=== PATIENT | male | born 1970 | race Caucasian/White ===

== ENCOUNTER → 2017-03-13 | Outpatient (CLI) | payer MEDICARE, MEDICAID ==
--- NOTE | 2017-03-13 08:34 | REP ---
Clinical: Nephrolithiasis. Comparison: 02/22/2015. Findings: Lung bases are clear. Visualized heart and pericardium normal. Fatty infiltration to the liver noted. The patient is status post cholecystectomy. Spleen, pancreas, bilateral adrenal glands and left kidney are normal. Right kidney includes 2 mm nonobstructing midpole calculus. No evidence for hydroureteronephrosis or obstructing ureteral calculi. The enteric system is without obstruction or acute inflammatory process. Normal terminal ileum and appendix identified in the right lower quadrant. Pelvis demonstrates normal bladder and age appropriate prostate/seminal vesicles. No ascites. No adenopathy. No free air. Abdominal aorta without aneurysm. Surrounding musculoskeletal structures intact. Impression: 1. A 2 mm right nephrolith. Otherwise normal urinary tract by noncontrast evaluation. 2. Hepatosteatosis Signed by Binh Parmar MD 03/13/2017 08:25 A
== END ==
LOC: M RAD 07:03
PROVIDERS: ATTEND Internal Medicine Nephrology
DX: N20.0 Calculus of kidney (principal)

== ENCOUNTER → 2019-11-28 | Outpatient (CLI) | payer MEDICARE, MEDICAID ==
--- NOTE | 2019-11-28 20:42 | REP ---
Clinical: Nephrolithiasis. Urinary retention. Technique: Axial noncontrast images from the lung bases to the pubic symphysis with coronal and sagittal re-formations. Comparison: 03/13/2017. Findings: Kidneys demonstrate few bilateral nonobstructing intrarenal calculi measuring up to 3 mm in the right kidney and 2 mm in left kidney. No associated hydroureteronephrosis or obstructing ureteral calculi identified. The enteric system is without obstruction or acute inflammatory process. Hepatic steatosis noted. Spleen, pancreas, and bilateral adrenal glands are normal. Normal terminal ileum and appendix identified in the right lower quadrant. Few scattered sigmoid diverticula noted without acute diverticulitis. Pelvis is partially collapsed and incompletely evaluated. Prostate/seminal vesicles appear grossly normal. No ascites. No free air. No adenopathy. Abdominal aorta without aneurysm. Musculoskeletal structures without acute abnormality; chronic L5 spondylolysis without spondylolisthesis noted. Lung bases are clear. Visualized heart and pericardium normal. Impression: 1. Nonobstructing bilateral intrarenal calculi. Electronically Signed by Binh Parmar MD 11/28/2019 08:34 P
== END ==
LOC: M RAD 16:24
PROVIDERS: ATTEND Internal Medicine Nephrology
DX: N20.0 Calculus of kidney (principal); R33.9 Retention of urine, unspecified

== ENCOUNTER 2020-10-02 16:52 | Emergency (ER) | payer OTHER, MEDICAID ==
[~2020-10-02] VITALS: Ht 170.2 cm; Wt 98.8 kg
--- OUTSIDE RECORDS SUMMARY | 2020-10-02 17:12 | CCD ---
Author Author [facility] Organization [facility] Address [address] [place], [place] [id number] Phone Care Team Providers Care Laborer Tin [place] Name Role Phone MIKAYLA SORIA Unavailable Allergies, Adverse Reactions, Alerts No Known Drug Allerg ies 11/20/2019 Medications * Continue: * MIKAYLA SPICER * amoxicillin 875 mg tablet , Take 1 tablet orally Every 12 hours 08/10/2020 * Discontinued: * JUSTIN KVNG PIPELINE OPERATOR * Augmentin 875 mg-125 mg tablet 11/23/2019 * MIKAYLA SPICER * Pyridium 100 mg tablet 08/10/2020 * Pre-existing: * omeprazole 40 mg capsule,delayed release Problems Hypospadias, penile (Q54.1) 11/20/2019 Dysuria (R30.0) 03/02/2020 Resolved: Other obstructive and reflux uropathy (N13.8) 03/02/2020 Urinary tract infection, site not specified (N39.0) 03/02/2020 Results Leukocytes: Negative 03/02/2020 Nitrite: Negative 03/02/2020 Urobilinogen: 1 mg/dL 03/02/2020 Protein: +1 03/02/2020 pH: 6.0 03/02/2020 Blood (Urine): Negative 03/02/2020 Specific [place]: 1.025 03/02/2020 Ketone: Negative 03/02/2020 Bilirubin: Negative 03/02/2020 Glucose: Negative 03/02/2020 Leukocytes: Negative 08/10/2020 Nitrite: Negative 08/10/2020 Urobilinogen: 0.2 mg/dL 08/10/2020 Protein: +1 08/10/2020 pH: 7.0 08/10/2020 Blood (Urine): Negative 08/10/2020 Specific [place]: 1.015 08/10/2020 Ketone: Negative 08/10/2020 Bilirubin: Negative 08/10/2020 Glucose: Negative 08/10/2020 Chief Complaint/Reason for Visit DysuriaHypospadiasHistory of infectionsK nown to urologyStart amoxicillinGet a cultureRefer back to urologyPatient is instructed to contact urology this afternoon to make close follow-up problems urinating DysuriaKUB appears normalOfficial report pendingUrinalysis unrevealingStart ProdiumAwait cultureKnown to urology in [place] Urinary obstructionAdd membrane is forme d in the last 24 hours overlying the meatus of the penisHas hypospadiasI contacted urologyThe indicated it would be appropriate to attempt urinary catheterizationThis membrane easily opened with catheterizationThe catheter was left in placeGood urine flow is notedThe patient will follow up with the urologist tomorrowWe will send the urine for culture UTI Procedures Performed and Ordered Today * INSERT TEMP BLADDER CATH 11/20/2019 * INSERTION TRAY AND DRAINAGE BAG NO CATH 11/20/2019 * MED SERV, KAY/WKEND/HOLIDAY 11/20/2019 * URINALYSIS NONAUTO W/O SCOPE 03/02/2020 * MED SERV, KAY/WKEND/HOLIDAY 03/02/2020 * URINALYSIS NONAUTO W/O SCOPE 08/10/2020 * * Lab: Collected Date 11/20/2019 1547 11/20/2019 URINE CULTURE 11/20/2019 Collected Date 03/02/2020 1733 03/02/2020 URINE CULTURE 03/02/2020 URINE CULTURE 08/10/2020 1344 08/10/2020 Imaging: XRAY ABDOMEN 1 VIEW (KUB) history of kidney stones 03/02/2020 Vital signs Body Temperature: Heart Rate: BP: Weight: O2 Percentage BldC Oximetry : Inhaled Oxygen Concentration: 97.3F 08/10/2020 95 beats per minute 08/10/2020 126/80 mmHg 08/10/2020 218lbs, 4oz 1 10/10/2019 96% 08/10/2020 21% 08/10/2020 Immunizations Social History Smoking Status: Never smoker. 03/02/2020 Reason for Referral Functional Status Plan of Treatment Appointments Counts Include [facility] ed: November 19 0, 2:50 PM, MIKAYLA SPICER Monday, March 02, 2020, 5:00 PM, MIKAYLA SPICER Monday, August 10, 2020, 12:00 PM, MKIAYLA SORIA PA Instructions: We will call with lab and/or xray results If your symptoms worsen, go to the Emergency Room. When taking antibiotics, also take probiotics. Call urology to make an appointment for follow-up as soon as possible <Follow up with primary care> Return if symptoms worsen We will call with lab and/or xray results <Follow up with primary care> We will call with lab and/or xray results If your symptoms worsen, go to the Emergency Room. Leave the catheter in placeContact urologyYou will need to be seen by urology soon Payers Insurance Policy Type Po licy ID Relation Subscriber Expi ration Medicare Medicare [id number] Ronn YU 020 [employer] [id number] Ronn YU ID IDENTIFICATION Other Insurance [facility] JUAN YU [employer] Commercial Insurance [id number] Rnon YU 07/13 Medicaid - [employer] Medicaid [id number] Ronn YU Encounters OFFICE/OUTPATIENT SIT, EST 08/10/2020 Diagnoses Dysuria Hypospadias, penile OFFICE/OUTPATIENT SIT, EST 03/02/2020 Diagnoses Dysuria Hypospadias, penile OFFICE/OUTPATIENT SIT, NEW 11/20/2019 Diagnoses Hypospadias, penile Other obstructive and reflux uropathy Urinary tract infection, site not specified
--- OUTSIDE RECORDS SUMMARY | 2020-10-02 17:12 | CCD ---
Author Author [facility] Organization [facility] Address [address] [place], [place] [id number] Phone Care Team Providers Care Shactor Name Role Phone MIKAYLA SORIA Unavailable Allergies, Adverse Reactions, Alerts No Known Drug Allerg ies 11/20/2019 Medications * Continue: * MIKAYLA SPICER * amoxicillin 875 mg tablet , Take 1 tablet orally Every 12 hours 08/10/2020 * Discontinued: * JUSTIN KVNG FILENET ADMIN * Augmentin 875 mg-125 mg tablet 11/23/2019 [...] 6.0 03/02/2020 Blood (Urine): Negative 03/02/2020 Specific [place]: 1.025 03/02/2020 Ketone: Negative 03/02/2020 Bilirubin: Negative 03/02/2020 Glucose: Negative 03/02/2020 Leukocytes: Negative 08/10/2020 Nitrite: Negative 08/10/2020 Urobilinogen: 0.2 mg/dL 08/10/2020 Protein: +1 08/10/2020 pH: 7.0 08/10/2020 Blood (Urine): Negative 08/10/2020 Specific [place]: 1.015 08/10/2020 Ketone: Negative 08/10/2020 Bilirubin: Negative 08/10/2020 Glucose: Negative 08/10/2020 Chief Complaint/Reason for Visit DysuriaHypospadiasHistory of infectionsK nown to urologyStart amoxicillinGet a cultureRefer back to urologyPatient is instructed to contact urology this afternoon to make close follow-up problems urinating DysuriaKUB appears normalOfficial report pendingUrinalysis unrevealingStart ProdiumAwait cultureKnown to urology in [place] UTI Urinary obstructionAdd membrane is forme d [...] for Referral Functional Status Plan of Treatment Procedures Scheduled: URINE CULTURE 08/10/2020 Appointments Schedul ed: November 19 0, 2:50 PM, MIKAYLA SPICER Monday, March 02, 2020, 5:00 PM, MIKAYLA SPICER Thursday, August 10, 2020, 12:00 PM, MIKAYLA SPICER Instructions: We will call with lab and/or [...] Medicare Medicare [id number] Ronn YU 020 [employer] [facility] Health Plan [id number] Ronn YU ID IDENTIFICATION Other Insurance [facility] JUAN YU [facility] Commercial Insurance [id number] Ronn YU 07/13 Medicaid - [employer] Medicaid [id number] Ronn YU Encounters OFFICE/OUTPATIENT SIT, EST 08/10/2020 Diagnoses Dysuria Hypospadias, penile OFFICE/OUTPATIENT SIT, EST 03/02/2020 Diagnoses Dysuria Hypospadias, penile OFFICE/OUTPATIENT SIT, NEW 11/20/2019 Diagnoses Hypospadias, penile Other obstructive and reflux uropathy Urinary tract infection, site not specified
--- OUTSIDE RECORDS SUMMARY | 2020-10-02 17:13 | CCD ---
Author Author [facility] Organization [facility] Address Unknown Phone Unavailable Care Team Providers Care Equip Maint Eng Name Role Phone SORIA, W MIKAYLA PA Unavailable Unavailable SORIA, W MIKAYLA PA Unavailable Unavailable SORIA, W MIKAYLA PA Unavailable Unavailable SORIA, W MIKAYLA PA Unavailable Unavailable SORIA, W MIKAYLA PA Unavailable Unavailable SORIA, W MIKAYLA PA Unavailable Unavailable SORIA, W MIKAYLA PA Unavailable Unavailable SORIA, W MIKAYLA PA Unavailable Unavailable SORIA, W MIKAYLA PA Unavailable Unavailable SORIA, W MIKAYLA PA Unavailable Unavailable SORIA, W MIKAYLA PA Unavailable Unavailable SORIA, W MIKAYLA PA Unavailable Unavailable SORIA, W MIKAYLA PA Unavailable Unavailable SORIA, W MIKAYLA PA Unavailable Unavailable SORIA, W MIKAYLA PA Unavailable Unavailable SORIA, W MIKAYLA PA Unavailable Unavailable SORIA, W MIKAYLA PA Unavailable Unavailable SORIA, W MIKAYLA PA Unavailable Unavailable SORIA, W MIKAYLA PA Unavailable Unavailable SORIA, W MIKAYLA PA Unavailable Unavailable SORIA, W MIKAYLA PA Unavailable Unavailable SORIA, W MIKAYLA PA Unavailable Unavailable SORIA, W MIKAYLA PA Unavailable Unavailable SORIA, W MIKAYLA PA Unavailable Unavailable SORIA, W MIKAYLA PA Unavailable Unavailable SORIA, W MIKAYLA PA Unavailable Unavailable SORIA, W MIKAYLA PA Unavailable Unavailable SORIA, W MIKAYLA PA Unavailable Unavailable SORIA, W MIKAYLA PA Unavailable Unavailable SORIA, W MIKAYLA PA Unavailable Unavailable SORIA, W MIKAYLA PA Unavailable Unavailable SORIA, W MIKAYLA PA Unavailable Unavailable SORIA, W MIKAYLA PA Unavailable Unavailable SORIA, W MIKAYLA PA Unavailable Unavailable SORIA, W MIKAYLA PA Unavailable Unavailable SORIA, W MIKAYLA PA Unavailable Unavailable SORIA, W MIKAYLA PA Unavailable Unavailable SORIA, W MIKAYLA PA Unavailable Unavailable SORIA, W MIKAYLA PA Unavailable Unavailable SORIA, W MIKAYLA PA Unavailable Unavailable SORIA, W MIKAYLA PA Unavailable Unavailable SORIA, W MIKAYLA PA Unavailable Unavailable SORIA, W MIKAYLA PA Unavailable Unavailable SORIA, W MIKAYLA PA Unavailable Unavailable SORIA, W MIKAYLA PA Unavailable Unavailable SORIA, W MIKAYLA PA Unavailable Unavailable Anthony, A Deanna DDS Unavailable Unavailable Anthony, A Deanna DDS Unavailable Unavailable Anthony, A Deanna DDS Unavailable Unavailable Anthony, A Deanna DDS Unavailable Unavailable Suki, F Edwin MILLER Unavailable Unavailable Suki, F Edwin MILLER Unavailable Unavailable Suki, F Edwin MILLER Unavailable Unavailable Suki, F Edwin MILLER Unavailable Unavailable Suki, F Edwin IMLLER Unavailable Unavailable Suki, F Edwin MD Unavailable Unavailable Suki, F Edwin MILLER Unavailable Unavailable Suki, F Edwin MILLER Unavailable Unavailable Suki, F Edwin MILLER Unavailable Unavailable Suki, F Edwin MILLER Unavailable Unavailable Suki, F Edwin MILLER Unavailable Unavailable Suki, F Edwin MILLER Unavailable Unavailable Suki, F Edwin MILLER Unavailable Unavailable Suki, F Edwin MILLER Unavailable Unavailable Suki, F Edwin MILLER Unavailable Unavailable Suki, F Edwin MILLER Unavailable Unavailable Suki, F Edwin MILLER Unavailable Unavailable Suki, F Edwin MILLER Unavailable Unavailable Suki, F Edwin MILLER Unavailable Unavailable Suki, F Edwin MILLER Unavailable Unavailable Suki, F Edwin MILLER Unavailable Unavailable Suki, F Edwin MILLER Unavailable Unavailable Suki, F Edwin MILLER Unavailable Unavailable Suki, F Edwin MD Unavailable Unavailable Suki, F Edwin MD Unavailable Unavailable Suki, F Edwin MD Unavailable Unavailable Suki, F Edwin MILLER Unavailable Unavailable Suki, F Edwin MD Unavailable Unavailable Suki, F Edwin MD Unavailable Unavailable Suki, F Edwin MD Unavailable Unavailable Suki, F Edwin MD Unavailable Unavailable Suki, F Edwin MD Unavailable Unavailable Suki, F Edwin MD Unavailable Unavailable Suki, F Edwin MD Unavailable Unavailable Suki, F Edwin MD Unavailable Unavailable Suki, F Edwin MD Unavailable Unavailable Suki, F Edwin MD Unavailable Unavailable Suki, F Edwin MD Unavailable Unavailable Suki, F Edwin MD Unavailable Unavailable Suki, F Edwin MD Unavailable Unavailable Suki, F Edwin MD Unavailable Unavailable Suki, F Edwin MD Unavailable Unavailable Suki, F Edwin MD Unavailable Unavailable Suki, F Edwin MD Unavailable Unavailable Suki, F Edwin MD Unavailable Unavailable Suki, F Edwin MD Unavailable Unavailable Suki, F Edwin MD Unavailable Unavailable Suki, F Edwin MD Unavailable Unavailable Suki, F Edwin MD Unavailable Unavailable Suki, F Edwin MD Unavailable Unavailable Suki, F Edwin MD Unavailable Unavailable Suki, F Edwin MD Unavailable Unavailable Suki, F Edwin MD Unavailable Unavailable Suki, F Edwin MD Unavailable Unavailable Suki, F Edwin MD Unavailable Unavailable Suki, F Edwin MD Unavailable Unavailable Suki, F Edwin MD Unavailable Unavailable Suki, F Edwin MD Unavailable Unavailable Suki, F Edwin MD Unavailable Unavailable Skui, F Edwin MD Unavailable Unavailable Suki, F Edwin MD Unavailable Unavailable Suki, F Edwin MD Unavailable Unavailable Suki, F Edwin MD Unavailable Unavailable Suki, F Edwin MD Unavailable Unavailable Suik, F Edwin MD Unavailable Unavailable Suki, F Edwin Unavailable Unavailable Suki, F Edwin MD Unavailable Unavailable Suki, F Edwin MD Unavailable Unavailable Suki, F Edwin MD Unavailable Unavailable Suki, F Edwin MD Unavailable Unavailable Suki, F Edwin MD Unavailable Unavailable Suki, F Edwin MD Unavailable Unavailable Suki, F Edwin MD Unavailable Unavailable Suki, F Edwin MD Unavailable Unavailable Suki, F Edwin MD Unavailable Unavailable Suki, F Edwin MD Unavailable Unavailable Suki, F Edwin MD Unavailable Unavailable Suki, F Edwin MD Unavailable Unavailable Suki, F Edwin MD Unavailable Unavailable Suki, F Edwin MD Unavailable Unavailable Suki, F Edwin MD Unavailable Unavailable Suki, F Edwin MD Unavailable Unavailable Suki, F Edwin MD Unavailable Unavailable Suki, F Edwin MD Unavailable Unavailable Suki, F Edwin MD Unavailable Unavailable Suki, F Edwin MD Unavailable Unavailable Suki, F Edwin MD Unavailable Unavailable Suki, F Edwin MD Unavailable Unavailable Suki, F Edwin MD Unavailable Unavailable Suki, F Edwin MD Unavailable Unavailable Suki, F Edwin MD Unavailable Unavailable Suki, F Edwin MD Unavailable Unavailable Suki, F Edwin MD Unavailable Unavailable Suki, F Edwin MD Unavailable Unavailable Suki, F Edwin MD Unavailable Unavailable Suki, F Edwin MD Unavailable Unavailable Suki, F Edwin MD Unavailable Unavailable Suki, F Edwin MD Unavailable Unavailable Suki, F Edwin MD Unavailable Unavailable Suki, F Edwin MD Unavailable Unavailable Suki, F Edwin MD Unavailable Unavailable Suki, F Edwin MD Unavailable Unavailable Suki, F Edwin MD Unavailable Unavailable Suki, F Edwin MD Unavailable Unavailable Suki, F Edwin MD Unavailable Unavailable Suki, F Edwin MD Unavailable Unavailable Suki, F Edwin MD Unavailable Unavailable Suki, F Edwin MD Unavailable Unavailable Suki, F Edwin MD Unavailable Unavailable Suki, F Edwin MD Unavailable Unavailable Suki, F Edwin MD Unavailable Unavailable Suki, F Edwin MD Unavailable Unavailable Suki, F Edwin MD Unavailable Unavailable Suki, F Edwin MD Unavailable Unavailable Suki, F Edwin MD Unavailable Unavailable Suki, F Edwin Unavailable Unavailable Suki, F Edwin MD Unavailable Unavailable Suki, F Edwin MD Unavailable Unavailable Suki, F Edwin MD Unavailable Unavailable Suki, F Edwin MD Unavailable Unavailable Suki, F Edwin MD Unavailable Unavailable Suki, F Edwin MD Unavailable Unavailable Suki, F Edwin MD Unavailable Unavailable Suki, F Edwin MD Unavailable Unavailable Suki, F Edwin MD Unavailable Unavailable Suki, F Edwin MD Unavailable Unavailable Suki, F Edwin MD Unavailable Unavailable Suki, F Edwin MD Unavailable Unavailable Suki, F Edwin MD Unavailable Unavailable Suki, F Edwin MD Unavailable Unavailable Suki, F Edwin MD Unavailable Unavailable Suki, F Edwin MD Unavailable Unavailable Suki, F Edwin MD Unavailable Unavailable Suki, F Edwin MD Unavailable Unavailable Suki, F Edwin MD Unavailable Unavailable Suki, F Edwin MD Unavailable Unavailable Suki, F Edwin MD Unavailable Unavailable Suki, F Edwin MD Unavailable Unavailable Suki, F Edwin MD Unavailable Unavailable Suik, F Edwin MD Unavailable Unavailable Walker IDRISKayla Unavailable JOSE Cormier, Bruna Unavailable Re-disclosure Warning The records that you are about to access may contain information from federally-assisted alcohol or drug abuse programs. If such information is present, then the following federally mandated warning applies: This information has been disclosed to you from records protected by federal confidentiality rules (42 CFR part 2). The federal rules prohibit you from making any further disclosure of this information unless further disclosure is expressly permitted by the written consent of the person to whom it pertains or as otherwise permitted by 42 CFR part 2. A general authorization for the release of medical or other information is NOT sufficient for this purpose. The Federal rules restrict any use of the information to criminally investigate or prosecute any alcohol or drug abuse patient.The records that you are about to access may contain highly sensitive health information, the redisclosure of which is protected by Article 27-F of the [facility] Public Health law. If you continue you may have access to information: Regarding HIV / AIDS; Provided by facilities licensed or operated by the [facility] Office of Mental Health; or Provided by the [facility] Office for People With Developmental Disabilities. If such information is present, then the following [facility] mandated warning applies: This information has been disclosed to you from confidential records which are protected by state law. State law prohibits you from making any further disclosure of this information without the specific written consent of the person to whom it pertains, or as otherwise permitted by law. Any unauthorized further disclosure in violation of state law may result in a fine or retirement sentence or both. A general authorization for the release of medical or other information is NOT sufficient authorization for further disc losure. 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 -NO packet given Pt Bill of Rights, Priv Prac, Ad Dir completed packet given Pt Bill of Rights, Priv Prac, Ad Dir MARIELENA ([facility]) Note: Pt declined AD packet Allergies and Adverse Reactions Type Description Substance Reaction Status Data Source(s ) Allergy to substance No Known Allergies No known allergies (situation ) MARIELENA ([facility]) Allergy to substance No Known Allergies No known allergies (situation ) MARIELENA ([facility]) Encounters Encounter Providers Location Date Indications Data Source(s ) OutpatientOFFICE/OUTPATIENT VISIT, EST 08/10/2020 Attender: MIKAYLA SPICER 08/10/2020 12:30:21 PM EST [facility]KER ([facility]) Outpatient 03/02/2020 05:34:27 PM EDT CH[facility]MAKER ([facility]) OutpatientOFFICE/OUTPATIENT VISIT, EST 03/02/2020 Attender: ANDI SPICER 03/02/2020 05:07:22 PM EDT CHARTMAKER ([facility]) Unknown<td ID="encounterTypeDescriptionI D0">Referral Order</td><td>Edwin Cohn MD</td><td></td><td>01/11/2020</td><td></td> Attender: Edwin Cohn MD 01/11/2020 06:06:00 PM EDT - 01/11/2020 11:59:00 PM EDT MARIELENA ([facility]) Outpatient Attender: Edwin Cohn MD 01/09/2020 02:37:00 PM EDT BLOOD [facility] BLOOD Unknown<td ID="encounterTypeDescriptionI D1">AHR</td><td>Edwin Conh MD</td><td>[facility]</td><td>01/09/2020</td><td><content ID="encounterDiagnosisID1-0">Urethral Stone</content>, <content ID="encounterDiagnosisID1-1">Routine History and Physical</content>, <content ID="encounterDiagnosisID1-2">Esophageal Reflux</content>, <content ID="encounterDiagnosisID1-3">Hypospadias</content>, <content ID="encounterDiagnosisID1-4">Vitamin D Deficiency</content>, <content ID="encounterDiagnosisID1-5">Hyperlipidemia</content>, <content ID="encounterDiagnosisID1-6">Chronic Kidney Disease (nkf Classification)</content></td> Attender: Edwin Cohn MD [facility] 01/09/2020 01:35:00 PM EDT - 01/09/2020 02:25:00 PM EDT Routine History and PhysicalRoutine History and PhysicalChronic Kidney Disease (nkf Classification)Chronic Kidney Disease (nkf Classification)HyperlipidemiaVitamin D DeficiencyHyperlipidemiaVitamin D DeficiencyHypospadiasEsophageal Reflux HypospadiasEsophageal RefluxUrethral StoneUrethral Stone MARIELENA ([facility]) Routine History and Physical Routine History and Physical Chronic Kidney Disease (nkf Classificati on) Chronic Kidney Disease (nkf Classificati on) Hyperlipidemia Vitamin D Deficiency Hyperlipidemia Vitamin D Deficiency Hypospadias Esophageal Reflux Hypospadias Esophageal Reflux Urethral Stone Urethral Stone Unknown<td ID="encounterTypeDescriptionI D2">Chart Prep</td><td>Bruna Cormier RN</td><td></td><td>12/26/2019</td><td></td> Attender: Bruna Cormier RN 12/26/2019 09:36:00 AM EDT - 12/26/2019 11:59:00 PM EDT MARIELENA ([facility]) OutpatientOFFICE/OUTPATIENT VISIT, [facility] 11/20/2019 Attender: MIKAYLA SPICER 11/20/2019 02:40:42 PM EDT ENRIQUETAMATIFFANY ([facility]) Unknown<td ID="encounterTypeDescriptionI D3">D Dental Office Visit - 30</td><td>Deanna Cruz DDS</td><td>[facility]</td><td>11/16/2019</td><td></td> Attender: Deanna Cruz DDS [facility] 11/16/2019 03:18:00 PM EST - 11/16/2019 03:45:00 PM EST MARIELENA ([facility]) Unknown<td ID="encounterTypeDescriptionI D4">D Dental Office Visit - 30</td><td>Deanna Cruz DDS</td><td>[facility]</td><td>10/18/2019</td><td></td> Attender: Deanna Cruz DDS [facility] 10/18/2019 02:47:00 PM EST - 10/18/2019 03:10:00 PM EST MARIELENA ([facility]) Unknown<td ID="encounterTypeDescriptionI D5">H Adult Prophy</td><td>Kayla Sharif [facility]</td><td>[facility]</td><td>10/06/2019</td><td></td> Attender: Kayla Sharif [facility] 10/06/2019 02:22:00 PM EST - 10/06/2019 02:58:00 PM EST MARIELENA ([facility]) Immunizations Vaccine Date Status Description Data Source(s) INFLUENZA VIRUS VACCINE QUADRIVALENT 2019- (6 MOS AN D UP) 07/12/2020 12:00:00 AM EDT completed [facility] Medications Medication Brand Name Start Date Product Form Dose Route Admi nistrative Instructions Pharmacy Instructions Status Indications Reaction Description Data Source(s) 875 mg 08/10/2020 12:00:00 AM EST tablet 14 TAKE ONE TABLET BY MOUTH EVERY 12 HOURS TAKE ONE TABLET BY MOUTH EVERY 12 HOURS SOLD: 08/10/2020 [facility] Amoxicillin 875 MG Oral Tablet amoxicillin 875 mg tabl et amoxicillin 875 mg tablet 08/10/2020 12:00:00 AM EST 1 completed , Take 1 tablet orally Every 12 hours 08/10/2020 CHARTMAKER ([facility]) 100 mg 07/13/2020 12:00:00 AM EDT tablet 30 TAKE ONE TABLET BY MOUTH EVERY DAY TAKE ONE TABLET BY MOUTH EVERY DAY SOLD: 09/14/2020 [facility] 100 mg 07/13/2020 12:00:00 AM EDT tablet 30 TAKE ONE TABLET BY MOUTH EVERY DAY TAKE ONE TABLET BY MOUTH EVERY DAY SOLD: 08/15/2020 [facility] 100 mg 07/13/2020 12:00:00 AM EDT tablet 30 TAKE ONE TABLET BY MOUTH EVERY DAY TAKE ONE TABLET BY MOUTH EVERY DAY SOLD: 07/16/2020 [facility] 50 mg 05/15/2020 12:00:00 AM EDT tablet extended release 24 hr 30 TAKE ONE TABLET BY MOUTH EVERY DAY TAKE ONE TABLET BY MOUTH EVERY DAY SOLD: 09/14/2020 [facility] 0.4 mg 05/15/2020 12:00:00 AM EDT capsule 30 TAKE ONE CAPSULE BY MOUTH AT BEDTIME TAKE ONE CAPSULE BY MOUTH AT BEDTIME SOLD: 09/14/2020 [facility] 50 mg 05/15/2020 12:00:00 AM EDT tablet extended release 24 hr 30 TAKE ONE TABLET BY MOUTH EVERY DAY TAKE ONE TABLET BY MOUTH EVERY DAY SOLD: 05/16/2020 [facility] 0.4 mg 05/15/2020 12:00:00 AM EDT capsule 30 TAKE ONE CAPSULE BY MOUTH AT BEDTIME TAKE ONE CAPSULE BY MOUTH AT BEDTIME SOLD: 08/15/2020 [facility] 0.4 mg 05/15/2020 12:00:00 AM EDT capsule 30 TAKE ONE CAPSULE BY MOUTH AT BEDTIME TAKE ONE CAPSULE BY MOUTH AT BEDTIME SOLD: 07/16/2020 [facility] 50 mg 05/15/2020 12:00:00 AM EDT tablet extended release 24 hr 30 TAKE ONE TABLET BY MOUTH EVERY DAY TAKE ONE TABLET BY MOUTH EVERY DAY SOLD: 06/15/2020 [facility] 0.4 mg 05/15/2020 12:00:00 AM EDT capsule 30 TAKE ONE CAPSULE BY MOUTH AT BEDTIME TAKE ONE CAPSULE BY MOUTH AT BEDTIME SOLD: 06/15/2020 [facility] 0.4 mg 05/15/2020 12:00:00 AM EDT capsule 30 TAKE ONE CAPSULE BY MOUTH AT BEDTIME TAKE ONE CAPSULE BY MOUTH AT BEDTIME SOLD: 05/16/2020 [facility] 50 mg 05/15/2020 12:00:00 AM EDT tablet extended release 24 hr 30 TAKE ONE TABLET BY MOUTH EVERY DAY TAKE ONE TABLET BY MOUTH EVERY DAY SOLD: 07/16/2020 [facility] 50 mg 05/15/2020 12:00:00 AM EDT tablet extended release 24 hr 30 TAKE ONE TABLET BY MOUTH EVERY DAY TAKE ONE TABLET BY MOUTH EVERY DAY SOLD: 08/15/2020 [facility] 10 mEq (1,080 mg) 04/19/2020 12:00:00 AM EDT tablet extended release 60 TAKE ONE TABLET BY MOUTH TWICE A DAY TAKE ONE TABLET BY MOUTH TWICE A DAY SOLD: 07/26/2020 [facility] 10 mEq (1,080 mg) 04/19/2020 12:00:00 AM EDT tablet extended release 60 TAKE ONE TABLET BY MOUTH TWICE A DAY TAKE ONE TABLET BY MOUTH TWICE A DAY SOLD: 04/21/2020 [facility] 10 mEq (1,080 mg) 04/19/2020 12:00:00 AM EDT tablet extended release 60 TAKE ONE TABLET BY MOUTH TWICE A DAY TAKE ONE TABLET BY MOUTH TWICE A DAY SOLD: 08/29/2020 [facility] 10 mEq (1,080 mg) 04/19/2020 12:00:00 AM EDT tablet extended release 60 TAKE ONE TABLET BY MOUTH TWICE A DAY TAKE ONE TABLET BY MOUTH TWICE A DAY SOLD: 05/16/2020 [facility] 10 mEq (1,080 mg) 04/19/2020 12:00:00 AM EDT tablet extended release 60 TAKE ONE TABLET BY MOUTH TWICE A DAY TAKE ONE TABLET BY MOUTH TWICE A DAY SOLD: 06/21/2020 [facility] 20 mg 03/12/2020 12:00:00 AM EDT capsule,delayed release (DR/EC) 90 TAKE ONE CAPSULE BY MOUTH EVERY DAY TAKE ONE CAPSULE BY MOUTH EVERY DAY SOLD: 09/09/2020 [facility] 20 mg 03/12/2020 12:00:00 AM EDT capsule,delayed release (DR/EC) 90 TAKE ONE CAPSULE BY MOUTH EVERY DAY TAKE ONE CAPSULE BY MOUTH EVERY DAY SOLD: 03/13/2020 [facility] 20 mg 03/12/2020 12:00:00 AM EDT capsule,delayed release (DR/EC) 90 TAKE ONE CAPSULE BY MOUTH EVERY DAY TAKE ONE CAPSULE BY MOUTH EVERY DAY SOLD: 06/11/2020 [facility] 100 mg 03/02/2020 12:00:00 AM EDT tablet 9 TAKE ONE TABLET BY MOUTH THREE TIMES A DAY TAKE ONE TABLET BY MOUTH THREE TIMES A DAY SOLD: 03/02/2020 [facility] Phenazopyridine hydrochloride 100 MG Ora l Tablet [Pyridium] Pyridium 100 mg tablet Pyridium 100 mg tablet 03/02/2020 12:00:00 AM EDT 1 completed 08/10/2020 [facility] ([facility] 100 mg 01/16/2020 12:00:00 AM EDT tablet 30 TAKE ONE TABLET BY MOUTH EVERY DAY TAKE ONE TABLET BY MOUTH EVERY DAY SOLD: 03/19/2020 [facility] 100 mg 01/16/2020 12:00:00 AM EDT tablet 30 TAKE ONE TABLET BY MOUTH EVERY DAY TAKE ONE TABLET BY MOUTH EVERY DAY SOLD: 02/20/2020 [facility] 100 mg 01/16/2020 12:00:00 AM EDT tablet 30 TAKE ONE TABLET BY MOUTH EVERY DAY TAKE ONE TABLET BY MOUTH EVERY DAY SOLD: 04/17/2020 [facility] 100 mg 01/16/2020 12:00:00 AM EDT tablet 30 TAKE ONE TABLET BY MOUTH EVERY DAY TAKE ONE TABLET BY MOUTH EVERY DAY SOLD: 05/16/2020 [facility] 100 mg 01/16/2020 12:00:00 AM EDT tablet 30 TAKE ONE TABLET BY MOUTH EVERY DAY TAKE ONE TABLET BY MOUTH EVERY DAY SOLD: 06/15/2020 [facility] 100 mg 01/16/2020 12:00:00 AM EDT tablet 30 TAKE ONE TABLET BY MOUTH EVERY DAY TAKE ONE TABLET BY MOUTH EVERY DAY SOLD: 01/19/2020 [facility] 1,250 mcg (50,000 unit) 01/12/2020 12:00:00 AM EDT capsule 2 TAKE ONE CAPSULE BY MOUTH EVERY 2 WEEKS TAKE ONE CAPSULE BY MOUTH EVERY 2 WEEKS SOLD: 05/16/2020 [facility] 1,250 mcg (50,000 unit) 01/12/2020 12:00:00 AM EDT capsule 2 TAKE ONE CAPSULE BY MOUTH EVERY 2 WEEKS TAKE ONE CAPSULE BY MOUTH EVERY 2 WEEKS SOLD: 04/21/2020 [facility] 1,250 mcg (50,000 unit) 01/12/2020 12:00:00 AM EDT capsule 2 TAKE ONE CAPSULE BY MOUTH EVERY 2 WEEKS TAKE ONE CAPSULE BY MOUTH EVERY 2 WEEKS SOLD: 03/10/2020 [facility] 1,250 mcg (50,000 unit) 01/12/2020 12:00:00 AM EDT capsule 2 TAKE ONE CAPSULE BY MOUTH EVERY 2 WEEKS TAKE ONE CAPSULE BY MOUTH EVERY 2 WEEKS SOLD: 01/15/2020 [facility] 1,250 mcg (50,000 unit) 01/12/2020 12:00:00 AM EDT capsule 2 TAKE ONE CAPSULE BY MOUTH EVERY 2 WEEKS TAKE ONE CAPSULE BY MOUTH EVERY 2 WEEKS SOLD: 02/14/2020 [facility] Vitamin D (Ergocalciferol) 1.25 MG (57916 UT) Oral Cap oksana Vitamin D (Ergocalciferol) 1.25 MG (35838 UT) Oral Capsule 01/09/2020 12:00:00 AM EDT active Vitamin D (Ergocalci ferol) MARIELENA ([facility]) Tamsulosin hydrochloride 0.4 MG Oral Capsule Tamsulosi n HCl 0.4 MG Oral Capsule Tamsulosin HCl 0.4 MG Oral Capsule 01/09/2020 12:00:00 AM EDT active Tamsulosin hydrochloride 0.4 MG Oral Cap oksana MARIELENA ([facility]) Omeprazole 20 MG Delayed Release Oral Ca psule Omeprazole 20 MG Oral Capsule Delayed Release Omeprazole 20 MG Oral Capsule Delayed Release 01/09/20 12:00:00 AM EDT 1 active Omeprazole 20 MG Delayed Release Oral Capsule MARIELENA ([facility]) potassium citrate 10 MEQ Extended Releas e Oral Tablet Potassium Citrate ER 10 MEQ (1080 MG) Oral Tablet Extended Release Potassium Citrate ER 10 MEQ (1080 MG) Oral Tablet Extended Release 01/09/2020 12:00:00 AM EDT active potassium citrate 10 MEQ Extended Release Oral Tablet MARIELENA ([facility]) 50 mg 12/19/2019 12:00:00 AM EDT tablet extended release 24 hr 30 TAKE ONE TABLET BY MOUTH EVERY DAY TAKE ONE TABLET BY MOUTH EVERY DAY SOLD: 04/17/2020 [facility] 50 mg 12/19/2019 12:00:00 AM EDT tablet extended release 24 hr 30 TAKE ONE TABLET BY MOUTH EVERY DAY TAKE ONE TABLET BY MOUTH EVERY DAY SOLD: 03/19/2020 [facility] 50 mg 12/19/2019 12:00:00 AM EDT tablet extended release 24 hr 30 TAKE ONE TABLET BY MOUTH EVERY DAY TAKE ONE TABLET BY MOUTH EVERY DAY SOLD: 02/20/2020 [facility] 50 mg 12/19/2019 12:00:00 AM EDT tablet extended release 24 hr 30 TAKE ONE TABLET BY MOUTH EVERY DAY TAKE ONE TABLET BY MOUTH EVERY DAY SOLD: 01/19/2020 [facility] 50 mg 12/19/2019 12:00:00 AM EDT tablet extended release 24 hr 30 TAKE ONE TABLET BY MOUTH EVERY DAY TAKE ONE TABLET BY MOUTH EVERY DAY SOLD: 12/21/2019 [facility] 875-125 mg 11/23/2019 12:00:00 AM EDT tablet 14 TAKE ONE TABLET BY MOUTH TWICE A DAY TAKE ONE TABLET BY MOUTH TWICE A DAY SOLD: 11/25/2019 [facility] Amoxicillin 875 MG / Clavulanate 125 MG Oral Tablet [Augmentin] Augmentin 875 mg-125 mg tablet Augmentin 875 mg-125 mg tablet 11/23/2019 12:00:00 AM EDT 1 completed 11/23/2019 JAMILAH ([facility]) 0.4 mg 11/22/2019 12:00:00 AM EDT capsule 30 TAKE ONE CAPSULE BY MOUTH AT BEDTIME TAKE ONE CAPSULE BY MOUTH AT BEDTIME SOLD: 03/19/2020 [facility] 0.4 mg 11/22/2019 12:00:00 AM EDT capsule 30 TAKE ONE CAPSULE BY MOUTH AT BEDTIME TAKE ONE CAPSULE BY MOUTH AT BEDTIME SOLD: 01/19/2020 [facility] 0.4 mg 11/22/2019 12:00:00 AM EDT capsule 30 TAKE ONE CAPSULE BY MOUTH AT BEDTIME TAKE ONE CAPSULE BY MOUTH AT BEDTIME SOLD: 02/20/2020 [facility] 0.4 mg 11/22/2019 12:00:00 AM EDT capsule 30 TAKE ONE CAPSULE BY MOUTH AT BEDTIME TAKE ONE CAPSULE BY MOUTH AT BEDTIME SOLD: 11/22/2019 [facility] 0.4 mg 11/22/2019 12:00:00 AM EDT capsule 30 TAKE ONE CAPSULE BY MOUTH AT BEDTIME TAKE ONE CAPSULE BY MOUTH AT BEDTIME SOLD: 04/17/2020 [facility] 0.4 mg 11/22/2019 12:00:00 AM EDT capsule 30 TAKE ONE CAPSULE BY MOUTH AT BEDTIME TAKE ONE CAPSULE BY MOUTH AT BEDTIME SOLD: 12/21/2019 [facility] 250 mg 11/22/2019 12:00:00 AM EDT tablet 5 TAKE ONE TABLET BY MOUTH EVERY DAY FOR 5 DAYS TAKE ONE TABLET BY MOUTH EVERY DAY FOR 5 DAYS SOLD: 11/22/2019 [facility] 10 mEq (1,080 mg) 08/18/2019 12:00:00 AM EST tablet extended release 60 TAKE ONE TABLET BY MOUTH TWICE A DAY TAKE ONE TABLET BY MOUTH TWICE A DAY SOLD: 10/20/2019 [facility] 10 mEq (1,080 mg) 08/18/2019 12:00:00 AM EST tablet extended release 60 TAKE ONE TABLET BY MOUTH TWICE A DAY TAKE ONE TABLET BY MOUTH TWICE A DAY SOLD: 08/19/2019 [facility] 10 mEq (1,080 mg) 08/18/2019 12:00:00 AM EST tablet extended release 60 TAKE ONE TABLET BY MOUTH TWICE A DAY TAKE ONE TABLET BY MOUTH TWICE A DAY SOLD: 01/04/2020 [facility] 10 mEq (1,080 mg) 08/18/2019 12:00:00 AM EST tablet extended release 60 TAKE ONE TABLET BY MOUTH TWICE A DAY TAKE ONE TABLET BY MOUTH TWICE A DAY SOLD: 02/14/2020 [facility] 10 mEq (1,080 mg) 08/18/2019 12:00:00 AM EST tablet extended release 60 TAKE ONE TABLET BY MOUTH TWICE A DAY TAKE ONE TABLET BY MOUTH TWICE A DAY SOLD: 03/21/2020 [facility] 10 mEq (1,080 mg) 08/18/2019 12:00:00 AM EST tablet extended release 60 TAKE ONE TABLET BY MOUTH TWICE A DAY TAKE ONE TABLET BY MOUTH TWICE A DAY SOLD: 09/18/2019 [facility] 50 mg 08/04/2019 12:00:00 AM EST tablet extended release 24 hr 30 TAKE ONE TABLET BY MOUTH EVERY DAY TAKE ONE TABLET BY MOUTH EVERY DAY SOLD: 08/08/2019 [facility] 50 mg 08/04/2019 12:00:00 AM EST tablet extended release 24 hr 30 TAKE ONE TABLET BY MOUTH EVERY DAY TAKE ONE TABLET BY MOUTH EVERY DAY SOLD: 09/05/2019 [facility] 100 mg 08/04/2019 12:00:00 AM EST tablet 30 TAKE ONE TABLET BY MOUTH EVERY DAY TAKE ONE TABLET BY MOUTH EVERY DAY SOLD: 08/08/2019 [facility] 100 mg 08/04/2019 12:00:00 AM EST tablet 30 TAKE ONE TABLET BY MOUTH EVERY DAY TAKE ONE TABLET BY MOUTH EVERY DAY SOLD: 12/21/2019 [facility] 100 mg 08/04/2019 12:00:00 AM EST tablet 30 TAKE ONE TABLET BY MOUTH EVERY DAY TAKE ONE TABLET BY MOUTH EVERY DAY SOLD: 09/25/2019 [facility] 50 mg 08/04/2019 12:00:00 AM EST tablet extended release 24 hr 30 TAKE ONE TABLET BY MOUTH EVERY DAY TAKE ONE TABLET BY MOUTH EVERY DAY SOLD: 09/25/2019 [facility] 100 mg 08/04/2019 12:00:00 AM EST tablet 30 TAKE ONE TABLET BY MOUTH EVERY DAY TAKE ONE TABLET BY MOUTH EVERY DAY SOLD: 11/22/2019 [facility] 100 mg 08/04/2019 12:00:00 AM EST tablet 30 TAKE ONE TABLET BY MOUTH EVERY DAY TAKE ONE TABLET BY MOUTH EVERY DAY SOLD: 09/05/2019 [facility] 100 mg 08/04/2019 12:00:00 AM EST tablet 30 TAKE ONE TABLET BY MOUTH EVERY DAY TAKE ONE TABLET BY MOUTH EVERY DAY SOLD: 10/24/2019 [facility] 50 mg 08/04/2019 12:00:00 AM EST tablet extended release 24 hr 30 TAKE ONE TABLET BY MOUTH EVERY DAY TAKE ONE TABLET BY MOUTH EVERY DAY SOLD: 11/22/2019 [facility] 50 mg 08/04/2019 12:00:00 AM EST tablet extended release 24 hr 30 TAKE ONE TABLET BY MOUTH EVERY DAY TAKE ONE TABLET BY MOUTH EVERY DAY SOLD: 10/24/2019 [facility] 1,250 mcg (50,000 unit) 07/12/2019 12:00:00 AM EDT capsule 2 TAKE ONE CAPSULE BY MOUTH EVERY 2 WEEKS TAKE ONE CAPSULE BY MOUTH EVERY 2 WEEKS SOLD: 08/12/2019 [facility] 1,250 mcg (50,000 unit) 07/12/2019 12:00:00 AM EDT capsule 2 TAKE ONE CAPSULE BY MOUTH EVERY 2 WEEKS TAKE ONE CAPSULE BY MOUTH EVERY 2 WEEKS SOLD: 09/25/2019 [facility] 1,250 mcg (50,000 unit) 07/12/2019 12:00:00 AM EDT capsule 2 TAKE ONE CAPSULE BY MOUTH EVERY 2 WEEKS TAKE ONE CAPSULE BY MOUTH EVERY 2 WEEKS SOLD: 11/03/2019 [facility] 1,250 mcg (50,000 unit) 07/12/2019 12:00:00 AM EDT capsule 2 TAKE ONE CAPSULE BY MOUTH EVERY 2 WEEKS TAKE ONE CAPSULE BY MOUTH EVERY 2 WEEKS SOLD: 12/21/2019 [facility] Vitamin D (Ergocalciferol) 49089 UNIT Oral Capsule Vit sarah D (Ergocalciferol) 74182 UNIT Oral Capsule 07/11/2019 12:00:00 AM EDT aborted Vitamin D (Ergocalciferol) MARIELENA ([facility]) 20 mg 04/15/2019 12:00:00 AM EDT capsule,delayed release (DR/EC) 90 TAKE ONE CAPSULE BY MOUTH EVERY DAY TAKE ONE CAPSULE BY MOUTH EVERY DAY SOLD: 12/15/2019 [facility] 20 mg 04/15/2019 12:00:00 AM EDT capsule,delayed release (DR/EC) 90 TAKE ONE CAPSULE BY MOUTH EVERY DAY TAKE ONE CAPSULE BY MOUTH EVERY DAY SOLD: 09/25/2019 [facility] Omeprazole 20 MG Delayed Release Oral Ca psule Omeprazole 20MG Oral Capsule Delayed Release Omeprazole 20MG Oral Capsule Delayed Release 9 12:00:00 AM EDT 1 aborted Omeprazole 20 M G Delayed Release Oral Capsule MARIELENA ([facility]) Q-PAP 325 MG Tablet Q-PAP 325 MG Tablet 12/20/2014 12:00:00 AM EDT aborted Q-PAP [facility] ([facility]) Insurance Providers Payer name Policy type / Coverage type Policy ID Covered constitution party ID Covered constitution party's relationship to dickey Policy Dickey Plan Information HUMANA GOLD [id number] SP [id number] EMEDNY [id number] SP [id number] HUMANA GOLD [id number] SP [id number] WELLCARE [id number] SP [id number] Medicaid - [employer] [id number] Medica id [id number] WELLCARE [id number] Commercial Insurance [id number] ID IDENTIFICATION [id number] Other In surance [id number] HUMANA [id number] [facility] Health Plan [id number] Medicare [id number] Medicare [id number] Medicaid - [employer] Sukhjinder [id number] Medica id [id number] WELLCARE [id number] Commercial Insurance [id number] ID IDENTIFICATION [id number] Other In [facility] [id number] Medicaid of [place] Other 68 Self 68 [employer] Other 0 Self 0 SELF PAY MEDICAID [facility] [id number] SP [id number] WellCare [facility] Options [id number] SP [id number] [employer]. Other 0 Self 0 Medicaid of [place] Other 68 Self 68 MEDICAID [id number] SP [id number] WELLCARE [id number] SP [id number] [employer]. Other 0 Self 0 [place] Other 68 Self 68 Wellcare [employer] Other 0 Self 0 [place] Other 68 Self 68 [place] Other 68 Self 68 Well[employer]. Other 0 Self 0 SELF PAY MEDICAID [facility] [id number] SP [id number] WellCare [employer] Options [id number] SP [id number] Medicaid of [place] Other 68 Self 68 Medicare Part [place] of [place] Other 0 Self 0 [place] Other 68 Self 68 Medicare [place] of [place] Other 0 Self 0 [place] Other 68 Self 68 [place] of [place] Other 68 Self 68 Medicare Part [place] of [place] Other 0 Self 0 Medicare [place] of [place] Other 0 Self 0 [place] Other 68 Self 68 Medicare Part [place] of [place] Other 0 Self 0 [place] of [place] Other 68 Self 68 MEDICARE [id number] SP [id number] A MEDICAID [id number] SP [id number] MEDICARE [id number] SP [id number] A MEDICAID [facility] [id number] SP [id number] MEDICARE [id number] SP [id number] A MEDICAID [facility] [id number] SP [id number] MEDICAID [id number] SP [id number] MEDICAID [facility] [id number] SP [id number] A Problems, Conditions, and Diagnoses Code Display Name Description Problem Type Effective Dates Data Source(s) R30.0 Dysuria Dysuria (R30.0) 03/02/2020 [id number] 03/02/2020 05:07:22 PM EDT [facility] ([facility]) 599.60 Urinary Obstruction Urinary Obstruction Problem 0 01/11/2020 12:00:00 AM EDT [facility]NA [facility]) N39.0 Urinary tract infection, site not specif ied Urinary tract infection, site not specified (N39.0) 03/02/2020 [id number] 11/20/2019 02:40:42 PM EDT - 03/02/2020 12:00:00 AM EDT [facility] ([facility]) 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 Ot her obstructive and reflux uropathy (N13.8) 03/02/2020 [id number] 11/20/2019 02:40:42 PM EDT - 03/02/2020 12:00:00 AM EDT [facility] ([facility]) Q54.1 Hypospadias, penile Hypospadias, penile (Q54.1) 11/20/19 20 [id number] 11/20/2019 02:40:42 PM EDT [facility] ([facility]) E55.9 Vitamin D deficiency, unspecified E55.9 - Vitamin D deficiency, unspecified Diagnosis 01/09/2020 02:37:00 PM EDT [facility] Surgeries/Procedures Procedure Description Date Indications Data Source(s) URNLS DIP STICK/TABLET RGNT NON-AUTO W/O MICRSCP 08/10 12:00:00 AM EST [facility] ([facility]) [facility] PRV OFFICE REG SCHEDD EVN WKEND/HOLIDAY HRS 2019 12:00:00 AM EDT [facility] ([facility]) URNLS DIP STICK/TABLET RGNT NON-AUTO W/O MICRSCP 03/02 12:00:00 AM EDT [facility] ([facility]) XRAY ABDOMEN 1 VIEW (KUB) history of kidney stones 03/02/2020 03/02/2020 12:00:00 AM EDT [facility] ([facility]) URINE CULTURE 03/02/2020 03/02/2020 12:00:00 AM EDT [facility] ([facility]) Collected Date 03/02/2020 1733 03/02/2020 03/02/2020 12: 00:00 AM EDT [facility] ([facility]) Annual wellness visit, includes a person alized prevention plan of service (pps), subsequent visit AHR -Subsequent Annual Wellness Visit 01/09/2020 12:00 :00 AM EDT MARIELENA ([facility]) [facility] PRV OFFICE REG SCHEDD EVN WKEND/HOLIDAY HRS 2019 12:00:00 AM EST [facility] ([facility]) Insertion tray with drainage bag but without catheter 11/20/2019 12:00:00 AM EST [facility] ([facility]) INSJ TEMP NDWELLG BLADDER CATHETER SIMPLE 11/20/2019 1 2:00:00 AM EST [facility] ([facility]) URINE CULTURE 11/20/2019 11/20/2019 12:00:00 AM EST [facility] ([facility]) Collected Date 11/20/2019 1547 11/20/2019 11/20/2019 12:00 :00 AM EST [facility] ([facility]) Max Partial Denture Resin Max Partial Denture Resin 11/16/2019 1 2:00:00 AM EST MARIELENA ([facility]) Oral Cancer Screening Oral Cancer Screening 10/18/2019 12:00:00 AM EST MARIELENA ([facility]) Periodic Oral Evaluation Periodic Oral Evaluation 10/18/2019 12:00: 00 AM EST MARIELENA ([facility]) Nutritional Counseling Nutritional Counseling 10/06/2019 12:00:00 A M EST MARIELENA ([facility]) Oral Hygiene/Pako Inst Oral Hygiene/[facility] Inst 10/06/2019 12:00:00 AM EST MARIELENA ([facility]) Prophylaxis Adult Prophylaxis Adult 10/06/2019 12:00:00 AM EST MARIELENA ([facility]) Results ID Date Data Source [id number] 08/11/2020 12:45:28 PM EST [facility] - CORE SPECIMEN DESCRIPTION URINE, COLLE CTION METHOD NOT SPECIFIEDCULTURE RESULTS NO GROWTHREPORT STATUS FINAL 08/11/2020 Name Value Range Interpretation Code Description Data Alison rce(s) Supporting Document(s) ID Date Data Source [id number] 08/10/2020 12:00:00 AM EST [facility] ([facility]) Name Value Range Interpretation Code Description Data Alison rce(s) Supporting Document(s) Glucose [Mass/volume] in Serum or Plasma Negative Glucose: Negative 08/10/2020 [facility] ([facility]) ID Date Data Source [id number] 08/10/2020 12:00:00 AM EST [facility] ([facility]) Name Value Range Interpretation Code Description Data Alison rce(s) Supporting Document(s) Bilirubin.total [Mass/volume] in Serum or Plasma Negative Bilirubin: Negative 08/10/2020 [facility] ([facility]) ID Date Data Source [id number] 08/10/2020 12:00:00 AM EST [facility] ([facility]) Name Value Range Interpretation Code Description Data Alison rce(s) Supporting Document(s) Ketone Negative Ketone: Negative 020 [facility] ([facility]) ID Date Data Source [id number] 08/10/2020 12:00:00 AM EST [facility] Name Value Range Interpretation Code Description Data Alison rce(s) Supporting Document(s) Specific gravity of Urine 1.015 Specific G ravity: 1.015 08/10/2020 [facility] ([facility]) ID Date Data Source [id number] 08/10/2020 12:00:00 AM EST [facility]) Name Value Range Interpretation Code Description Data Alison rce(s) Supporting Document(s) Hemoglobin [Presence] in Urine Negative Blood (Urine): Negative 08/10/2020 [facility] ([facility]) ID Date Data Source [id number] 08/10/2020 12:00:00 AM EST [facility] Name Value Range Interpretation Code Description Data Alison rce(s) Supporting Document(s) pH of Blood 7.0 pH: 7.0 08/10/2020 [facility]ART[facility]K ER ([facility]) ID Date Data Source [id number] 08/10/2020 12:00:00 AM EST [facility] Name Value Range Interpretation Code Description Data Alison rce(s) Supporting Document(s) Protein [Mass/volume] in Serum or Plasma +1 Protein: +1 08/10/2020 [facility] ID Date Data Source [id number] 08/10/2020 12:00:00 AM EST [facility] ([facility]) Name Value Range Interpretation Code Description Data Alison rce(s) Supporting Document(s) Urobilinogen [Mass/volume] in Urine 0.2 mg/dL Urobilinogen: 0.2 mg/dL 08/10/2020 [facility] ([facility]) ID Date Data Source [id number] 08/10/2020 12:00:00 AM EST [facility] ([facility]) Name Value Range Interpretation Code Description Data Alison rce(s) Supporting Document(s) Nitrite [Presence] in Urine Negative Nitrite: Negative 08/10/2020 [facility] ([facility]) ID Date Data Source [id number] 08/10/2020 12:00:00 AM EST [facility] ([facility]) Name Value Range Interpretation Code Description Data Alison rce(s) Supporting Document(s) Leukocytes [#/volume] in Blood Negative Leuko cytes: Negative 08/10/2020 [facility] ([facility]) ID Date Data Source [id number] 03/02/2020 07:29:00 PM EDT CH[facility] ([facility]) EXAM:Abdomen 1V CLINICAL INDICATION: DYS URIA, HX KIDNEY STONES TECHNIQUE: Two views of the abdomen were obtained. COMPARISON: 04/26/2012 FINDINGS: A 2 mm calcification overlies the mid right renal shadow. There may be punctate calcifications overlying the left renal shadow. The bowel gas pattern is nonobstructive. The visualized osseous structures are grossly intact. IMPRESSION: Possible 2 mm right renal calculus. Possible punctate left renal calculi. L2 Name Value Range Interpretation Code Description Data Alison rce(s) Supporting Document(s) ID Date Data Source [id number] 03/04/2020 03:21:28 PM EDT [facility] - CORE SPECIMEN DESCRIPTION URINE, COLLE CTION METHOD NOT SPECIFIEDCULTURE RESULTS NO GROWTHREPORT STATUS FINAL 03/04/2020 Name Value Range Interpretation Code Description Data Alison rce(s) Supporting Document(s) ID Date Data Source [id number] 03/02/2020 12:00:00 AM EDT [facility] ([facility]) Name Value Range Interpretation Code Description Data Alison rce(s) Supporting Document(s) Glucose [Mass/volume] in Serum or Plasma Negative Glucose: Negative 03/02/2020 [facility] ([facility]) ID Date Data Source [id number] 03/02/2020 12:00:00 AM EDT [facility] ([facility]) Name Value Range Interpretation Code Description Data Alison rce(s) Supporting Document(s) Bilirubin.total [Mass/volume] in Serum or Plasma Negative Bilirubin: Negative 03/02/2020 [facility] ([facility]) ID Date Data Source [id number] 03/02/2020 12:00:00 AM EDT [facility] ([facility]) Name Value Range Interpretation Code Description Data Alison rce(s) Supporting Document(s) Ketone Negative Ketone: Negative 03/02/20 [facility] ([facility]) ID Date Data Source [id number] 03/02/2020 12:00:00 AM EDT [facility] ([facility]) Name Value Range Interpretation Code Description Data Alison rce(s) Supporting Document(s) Specific gravity of Urine 1.025 Specific G ravity: 1.025 03/02/2020 [facility] ([facility]) ID Date Data Source [id number] 03/02/2020 12:00:00 AM EDT [facility] ([facility]) Name Value Range Interpretation Code Description Data Alison rce(s) Supporting Document(s) Hemoglobin [Presence] in Urine Negative Blood (Urine): Negative 03/02/2020 [facility] ([facility]) ID Date Data Source [id number] 03/02/2020 12:00:00 AM EDT [facility] ([facility]) Name Value Range Interpretation Code Description Data Alison rce(s) Supporting Document(s) pH of Blood 6.0 pH: 6.0 03/02/2020 CHARTMAKE R ([facility]) ID Date Data Source [id number] 03/02/2020 12:00:00 AM EDT [facility] ([facility]) Name Value Range Interpretation Code Description Data Alison rce(s) Supporting Document(s) Protein [Mass/volume] in Serum or Plasma +1 Protein: +1 03/02/2020 [facility] ([facility]) ID Date Data Source [id number] 03/02/2020 12:00:00 AM EDT [facility] ([facility]) Name Value Range Interpretation Code Description Data Alison rce(s) Supporting Document(s) Urobilinogen [Mass/volume] in Urine 1 mg/dL Urobilinogen: 1 mg/dL 03/02/2020 [facility] ([facility]) ID Date Data Source [id number] 03/02/2020 12:00:00 AM EDT [facility] Name Value Range Interpretation Code Description Data Alison rce(s) Supporting Document(s) Nitrite [Presence] in Urine Negative Nitrite: Negative 03/02/2020 [facility] ([facility]) ID Date Data Source [id number] 03/02/2020 12:00:00 AM EDT [facility] ([facility]) Name Value Range Interpretation Code Description Data Alison rce(s) Supporting Document(s) Leukocytes [#/volume] in Blood Negative Leuko cytes: Negative 03/02/2020 [facility] ([facility]) ID Date Data Source [id number] 01/09/2020 02:39:00 PM EDT MARIELENA ([facility]) Name Value Range Interpretation Code Description Data Alison rce(s) Supporting Document(s) Reported Physicians See Note Reported Physicians REMBERT ([facility]) Note: Reported Physicians:Ordering: Edwin MorrisonAttending: Edwin Cohn ID Date Data Source [id number] 01/09/2020 02:39:00 PM EDT MARIELENA ([facility]) Name Value Range Interpretation Code Description Data Alison rce(s) Supporting Document(s) Calcidiol [Mass/volume] in Serum or Plasma 46.6 ng/ml Normal Vitamin D,25-HYDROXY REM[facility]ERT ([facility]) Note: Vitamin D Status Rang e Deficiency <20 ng/ml Insufficiency 20-29.9 ng/ml Sufficiency 30-100 ng/ml Toxicity >100 ng/ml Patients should not be tested for 72 hours post fluorescein dye angiography. A false elevation of result may occur.Responsible Observer: Vitamin D Vitamin D,25-Hydroxy 300.5230 (A) ID Date Data Source [id number] 01/09/2020 02:39:00 PM EDT REMBERT ([facility]) Name Value Range Interpretation Code Description Data Alison rce(s) Supporting Document(s) Deprecated Cholesterol.in LDL/Cholestero l.in HDL [Mass ratio] in Serum or Plasma 4.5 Normal CHOL/HDL RATIO [facility]ERT ([facility] ) Note: Responsible Observer: CHOL/HDL RAT IO CHOL/HDL RATIO 300.4700 (A) Cholesterol crystals [Presence] in Stone by Infrared spectroscop y 186 MG/DL Normal CHOLESTEROL [facility]ERT ([facility]) Note: Responsible Observer: CHOL CHOLEST BLAINE 300.4350 (A) Cholesterol in HDL [Mass/volume] in Serum or Plasma ultracen trifugate 41 MG/DL Normal HDL CHOLESTEROL [facility] ([facility]) Note: Responsible Observer: HDL HDL CHOL ESTEROL 300.4600 (A) Triglyceride [Mass/volume] in Serum or Plasma 168 MG/DL Above high normal TRIGLYCERIDES [facility]ERT ([facility]) Note: Responsible Observer: TRIG TRIGLYC ERIDES 300.4300 (A) Cholesterol in LDL [Mass/volume] in Serum or Plasma by Direct as say 111 MG/DL Normal LDL CHOLESTEROL [facility] ([facility]) Note: Responsible Observer: LDL LDL CHOL ESTEROL 300.4400 (A) ID Date Data Source [id number] 01/09/2020 02:39:00 PM EDT REMBERT ([facility]) Name Value Range Interpretation Code Description Data Alison rce(s) Supporting Document(s) Hemoglobin A1c/Hemoglobin.total in Blood 5.6 % Normal GLYCOSYLATED HGBA1C REM[facility] ([facility]) Note: Responsible Observer: HGB A1C GLYC OSYLATED HGBA1C 300.0800 (A) ID Date Data Source [id number] 01/09/2020 02:39:00 PM EDT REM[facility]ERT ([facility]) Name Value Range Interpretation Code Description Data Alison rce(s) Supporting Document(s) Albumin [Mass/volume] in Synovial fluid 4.9 G/DL Normal ALBUMIN [facility] ([facility]) Note: Responsible Observer: ALB ALBUMIN 300.3900 (A) Albumin/Globulin [Mass Ratio] in Amniotic fluid 2.0 G/DL Normal ALB/GLOB RATIO [facility] ([facility]) Note: Responsible Observer: A/G RATIO AL B/GLOB RATIO 300.4100 (A) Alanine aminotransferase [Enzymatic activity/volume] in Seru m or Plasma 131 U/L Above high normal ALT REMBERT ([facility]) Note: Responsible Observer: ALT/SGPT ALT 300.3100 (A) Aspartate aminotransferase [Enzymatic activity/volume] in Serum or Plasma 60 U/L Above high normal AST REM[facility] ([facility]) Note: Responsible Observer: AST/SGOT AST 300.3050 (A) Alkaline phosphatase isoenzyme [Units/volume] in Serum or Plasma 94 U/L Normal ALKALINE PHOSPHATASE [facility] ([facility]) Note: Responsible Observer: ALK PHOS ALK VENUS PHOSPHATASE 300.3110 (A) Urea nitrogen/Creatinine [Mass Ratio] in Serum or Plasma 17 Normal BUN/CREAT RATIO [facility] ([facility]) Note: Responsible Observer: BUN/CREAT RA TONE BUN/CREAT RATIO 300.0450 (A) BLOOD UREA NITRO 17 MG/DL Normal BLOOD UREA NITRO [facility] ([facility]) Note: Responsible Observer: BUN BLOOD UR EA NITROGEN 300.0350 (A) Bilirubin.total [Mass/volume] in Serum or Plasma 0.5 MG/DL Normal BILIRUBIN,TOTAL MARIELENA ([facility]) Note: Responsible Observer: TOTAL BILI T OTAL BILIRUBIN 300.2700 (A) Carbon dioxide, total [Moles/volume] in Serum or Plasma 31 MEQ/L Normal CARBON DIOXIDE MARIELENA ([facility]) Note: Responsible Observer: CO2 CARBON D IOXIDE 300.0250 (A) Chloride [Moles/volume] in Serum, Plasma or Blood 105 MEQ/L Normal CHLORIDE MARIELENA ([facility]) Note: Responsible Observer: CL CHLORIDE 300.0200 (A) CA 10.1 MG/DL Normal CA MARIELENA ([facility]) Note: Responsible Observer: CA CALCIUM 300.2200 (A) GFR 80.1 ML/MIN GFR [facility]IELENA ([facility]) Note: Stage G2 - Mildly decreased kidne y function The GFR is an estimate of the Glomerular Filtration Rate. It is an aid to assess a patient's renal function. It is not a conclusive diagnosis of kidney disease. GFR normal is >=90 The MDRD GFR calculation is considered valid between the ages of 18 and 75 years only.Responsible Observer: GFR GFR 300.0410 (A) Creatine/Creatinine [Mass Ratio] in Urine 1.0 MG/DL Nery l CREATININE [facility]ERT ([facility]) Note: Responsible Observer: CREAT CREATI NINE 300.0400 (A) Anion gap in Blood 12 Normal ANION GAP [facility]ERT ([facility] [place]) Note: Responsible Observer: ANION GAP AN ION GAP 300.0300 (A) Globulin [Mass/volume] in Serum by calculation 2.5 G/DL Normal GLOBULIN MARIELENA ([facility]) Note: Responsible Observer: GLOB GLOBULI N 300.4050 (A) Potassium [Mass/volume] in Blood 4.3 MEQ/L Normal POT ASSIUM [facility]ERT ([facility]) Note: Responsible Observer: K POTASSIUM 300.0150 (A) Glucose [Presence] in Urine 108 MG/DL Above high normal G LUCOSE REM[facility]ERT ([facility]) Note: Responsible Observer: GLU GLUCOSE 300.0500 (A) Sodium [Moles/volume] in Serum, Plasma or Blood 144 MEQ/L Normal SODIUM [facility] ([facility]) Note: Responsible Observer: NA SODIUM 3 00.0100 (A) Protein [Mass/volume] in Synovial fluid 7.4 G/DL Normal TOTAL PROTEIN [facility] ([facility]) Note: Responsible Observer: TP TOTAL PRO TEIN 300.3750 (A) ID Date Data Source [id number] 01/09/2020 05:43:00 PM EDT [facility] Has Patient Fasted For The Past 12 Hour s? N Has Patient Fasted For The Past 12 Hours? Y Has Patient Fasted For The Past 12 Hour s? N Has Patient Fasted For The Past 12 Hours? Y Has Patient Fasted For The Past 12 Hour s? N Has Patient Fasted For The Past 12 Hours? Y Has Patient Fasted For The Past 12 Hour s? N Has Patient Fasted For The Past 12 Hours? Y Name Value Range Interpretation Code Description Data Alison rce(s) Supporting Document(s) SODIUM 144 MEQ/L 135-145 [facility] POTASSIUM 4.3 MEQ/L 3.5-5.3 [facility] CHLORIDE 105 MEQ/L 94-110 [facility] CARBON DIOXIDE 31 MEQ/L 22-33 [facility] ANION GAP 12 5-16 [facility] BLOOD UREA NITRO 17 MG/DL 7-25 [facility] CREATININE 1.0 MG/DL 0.6-1.4 [facility] GFR 80.1 ML/MIN [facility] Stage G2 - Mildly decreased kidney func tion The GFR is an estimate of the Glomerular Filtration Rate. It is an aid to assess a patient's renal function. It is not a conclusive diagnosis of kidney disease. GFR normal is >=90 The MDRD GFR calculation is considered valid between the ages of 18 and 75 years only. BUN/CREAT RATIO 17 8-36 [facility] GLUCOSE 108 MG/DL 70-100 H [facility] CA 10.1 MG/DL 8.7-10.5 [facility] BILIRUBIN,TOTAL 0.5 MG/DL 0.1-1.3 [facility] AST 60 U/L 5-40 H [facility] ALT 131 U/L 5-48 H [facility] ALKALINE PHOSPHATASE 94 U/L 40-140 [facility] TOTAL PROTEIN 7.4 G/DL 5.9-8.3 [facility] ALBUMIN 4.9 G/DL 3.0-5.1 N [facility] GLOBULIN 2.5 G/DL 1.5-3.5 N [facility] ALB/GLOB RATIO 2.0 G/DL 1.0-3.0 [facility] ID Date Data Source [id number] 01/09/2020 05:43:00 PM T [facility] Has Patient Fasted For The Past 12 Hour s? N Has Patient Fasted For The Past 12 Hours? Y Has Patient Fasted For The Past 12 Hour s? N Has Patient Fasted For The Past 12 Hours? Y Has Patient Fasted For The Past 12 Hour s? N Has Patient Fasted For The Past 12 Hours? Y Has Patient Fasted For The Past 12 Hour s? N Has Patient Fasted For The Past 12 Hours? Y Name Value Range Interpretation Code Description Data Alison rce(s) Supporting Document(s) GLYCOSYLATED HGBA1C 5.6 % 4.1-6.5 N [facility] ID Date Data Source [id number] 01/09/2020 05:43:00 PM T [facility] Has Patient Fasted For The Past 12 Hour s? N Has Patient Fasted For The Past 12 Hours? Y Has Patient Fasted For The Past 12 Hour s? N Has Patient Fasted For The Past 12 Hours? Y Has Patient Fasted For The Past 12 Hour s? N Has Patient Fasted For The Past 12 Hours? Y Has Patient Fasted For The Past 12 Hour s? N Has Patient Fasted For The Past 12 Hours? Y Name Value Range Interpretation Code Description Data Alison rce(s) Supporting Document(s) TRIGLYCERIDES 168 MG/DL 45-150 H [facility] CHOLESTEROL 186 MG/DL 125-200 [facility] LDL CHOLESTEROL 111 MG/DL 50-130 [facility] HDL CHOLESTEROL 41 MG/DL 39-96 [facility] CHOL/HDL RATIO 4.5 0-4.9 [facility] ID Date Data Source [id number] 01/09/2020 05:43:00 PM [facility] Has Patient Fasted For The Past 12 Hour s? N Has Patient Fasted For The Past 12 Hours? Y Has Patient Fasted For The Past 12 Hour s? N Has Patient Fasted For The Past 12 Hours? Y Has Patient Fasted For The Past 12 Hour s? N Has Patient Fasted For The Past 12 Hours? Y Has Patient Fasted For The Past 12 Hour s? N Has Patient Fasted For The Past 12 Hours? Y Name Value Range Interpretation Code Description Data Alison rce(s) Supporting Document(s) Vitamin D,25-HYDROXY 46.6 ng/ml 30-100 [facility] D Status Range De ficiency <20 ng/ml Insufficiency 20-29.9 ng/ml Sufficiency 30-100 ng/ml Toxicity >100 ng/ml Patients should not be tested for 72 hours post fluorescein dye angiography. A false elevation of result may occur. ID Date Data Source [id number] 11/22/2019 12:32:03 PM EDT [facility] - CORE SPECIMEN DESCRIPTION URINE, COLLE CTION METHOD NOT SPECIFIEDCULTURE RESULTS >10,000 TO <100,000 CFU/ML AEROCOCCUS URINAENOTE: THERE ARE NO CLSI APPROVED CRITERIA FOR TESTING THESUSCEPTIBILITY OF THIS ORGANISM TO ANTIBIOTICS. CONSULTATION WITH ANINFECTIOUS DISEASE PHYSICIAN OR PHARMACIST MAY BE WARRANTED IF THISORGANISM IS CLINICALLY SIGNIFICANT. REPORT STATUS FINAL 11/22/2019 Name Value Range Interpretation Code Description Data Alison rce(s) Supporting Document(s) Procedure Social History Code Duration Value Status Description Data Source(s ) Smoking 03/02/2020 12:00:00 AM EDT Never smoker completed Never s edvin CH[facility]MAKER ([facility]) Vital Signs ID Date Data Source UNK Name Value Range Interpretation Code Description Data Source(s) Inhaled oxygen concentration 21 % 21 % CH[facility]MAK[facility] ([facility]) Oxygen saturation in Arterial blood by Pulse oximetry 96 % 96 % [facility]MAK[facility] ([facility]) Body weight 218.25 [lb_av] 218.25 [lb_av] CHART MAKER ([facility]) Diastolic blood pressure 80 mm[Hg] 80 mm[Hg] CHARTMAKER ([facility]) Systolic blood pressure 126 mm[Hg] 126 mm[Hg] C HARTYADIRAKER ([facility]) Heart rate 95 /min 95 /min CHARTMAKER ([facility]) Body temperature 97.3 [degF] 97.3 [degF] WILFRED GOLDSTEIN ([facility]) Inhaled oxygen concentration 21 % 21 % CH[facility]MAKER ([facility]) Oxygen saturation in Arterial blood by Pulse oximetry 97 % 97 % CHARTMAKER ([facility]) Body weight 206 [lb_av] 206 [lb_av] CHARTMAKER ([facility]) Diastolic blood pressure 80 mm[Hg] 80 mm[Hg] CHARTMAKER ([facility]) Systolic blood pressure 120 mm[Hg] 120 mm[Hg] C HARTMAKER ([facility]) Heart rate 85 /min 85 /min CHARTMAKER ([facility]) Body temperature 97.9 [degF] 97.9 [degF] CHARTChicho ANGELITA ([facility]) Oxygen saturation in Arterial blood by Pulse oximetry 97 % 97 % MARIELENA ([facility]) PhenX - pain, abdominal - type and intensity protocol 0 0 REMBERT ([facility]) Body surface area Derived from formula 2.03 m2 2.03 m2 REMBERT ([facility]) Body mass index (BMI) [Ratio] 33.2 kg/m2 33.2 k g/m2 MARIELENA ([facility]) Body weight 206 [lb_av] 206 [lb_av] [facility] Body height 66 [in_i] 66 [in_i] MARIELENA ([facility]) Body temperature 96.7 [degF] 96.7 [degF] [facility] A[facility] ([facility]) Respiratory rate 18 /min 18 /min MARIELENA ([facility]) Heart rate rhythm 1 1 [place] ([facility]) Heart rate 88 /min 88 /min MARIELENA ([facility]) Diastolic blood pressure 80 mm[Hg] 80 mm[Hg] REMBERT ([facility]) Systolic blood pressure 118 mm[Hg] 118 mm[Hg] [facility] Patient Treatment Plan of Care Planned Activity Planned Date Details Description Data Source (s) Vitamin D (Ergocalciferol) 1.25 MG (21698 UT) Oral Cap oksana 01/09/2020 12:00:00 AM EDT [facility] Omeprazole 20 MG Delayed Release Oral Capsule 01/09/2020 12:00:00 A M EDT REMBERT ([facility]) Vitamin D (Ergocalciferol) 10061 UNIT Oral Capsule 07/11/2019 12 :00:00 AM [facility] ([facility]) Omeprazole 20 MG Delayed Release Oral Capsule 01/27/2019 12:00:00 A M [facility])
[2020-10-02] MEDS ORDERED: LIDOCAINE 2% 5ML JELLY UROJET TOP ONE (17:45)
--- OUTSIDE RECORDS SUMMARY | 2020-10-02 18:17 | CCD ---
Author Author [facility] Organization [facility] Address Unknown Phone Unavailable Care Team Providers Care Android Ui Developer Name Role Phone SORIA, W MIKAYLA PA [...] Unavailable Suki, F Edwin MD Unavailable Unavailable Uski, F Ediwn MD Unavailable Unavailable Suki, F Edwin MD [...] Unavailable Suki, F Edwin MD Unavailable Unavailable Walker IDRISKayla [...] is protected by Article 27-F of the [facility] Public Health law. If you continue you may have access to information: Regarding HIV / AIDS; Provided by facilities licensed or operated by the [facility] Office of Mental Health; or Provided by the [facility] Office for People With Developmental Disabilities. If such information is present, then the following [facility] mandated warning applies: This [...] law may result in a fine or senior care sentence or both. A general authorization for the release of medical or other information is NOT sufficient authorization for further disc losure. Advance Directives Directive Description Gis Analyst Developer Hardware Manager Status Observation Descr iption Data Source(s) Ebola Screening Performed completed Ebol a Screening Performed [facility] Note: Within the last month, [...] Care) Outpatient 03/02/2020 05:34:27 PM EDT CHARTMAKER ([facility]) OutpatientOFFICE/OUTPATIENT VISIT, EST 03/02/2020 Attender: ANDI SPICER 03/02/2020 05:07:22 PM EDT CHARTMAKER ([facility]) Unknown<td ID="encounterTypeDescriptionI D0">Referral Order</td><td>Edwin Cohn MD</td><td></td><td>01/11/2020</td><td></td> Attender: Edwin Cohn MD 01/11/2020 06:06:00 PM EDT - 01/11/2020 11:59:00 PM EDT MARIELENA ([facility]) Outpatient Attender: Edwin Cohn MD 01/09/2020 02:37:00 PM EDT BLOOD [facility] BLOOD Unknown<td ID="encounterTypeDescriptionI D1">AHR</td><td>Edwin Cohn MD</td><td>[facility]</td><td>01/09/2020</td><td><content ID="encounterDiagnosisID1-0">Urethral Stone</content>, <content ID="encounterDiagnosisID1-1">Routine History and Physical</content>, <content ID="encounterDiagnosisID1-2">Esophageal Reflux</content>, <content ID="encounterDiagnosisID1-3">Hypospadias</content>, <content ID="encounterDiagnosisID1-4">Vitamin D Deficiency</content>, <content ID="encounterDiagnosisID1-5">Hyperlipidemia</content>, <content ID="encounterDiagnosisID1-6">Chronic Kidney Disease (nkf Classification)</content></td> Attender: Edwin Cohn MD [facility] 01/09/2020 01:35:00 PM EDT - 01/09/2020 02:25:00 PM EDT Routine History and PhysicalRoutine History and PhysicalChronic Kidney Disease (nkf Classification)Chronic Kidney Disease (nkf Classification)HyperlipidemiaVitamin D DeficiencyHyperlipidemiaVitamin D DeficiencyHypospadiasEsophageal Reflux HypospadiasEsophageal RefluxUrethral StoneUrethral Stone MARIELENA ([facility]) Routine History and Physical Routine History and Physical Chronic Kidney Disease (nkf Classificati on) Chronic Kidney Disease (nkf Classificati on) Hyperlipidemia Vitamin D Deficiency Hyperlipidemia Vitamin D Deficiency Hypospadias Esophageal Reflux Hypospadias Esophageal Reflux Urethral Stone Urethral Stone Unknown<td ID="encounterTypeDescriptionI D2">Chart Prep</td><td>Bruna Cormier RN</td><td></td><td>12/26/2019</td><td></td> Attender: Bruna Cormier RN 12/26/2019 09:36:00 AM EDT - 12/26/2019 11:59:00 PM EDT MARIELENA ([facility]) OutpatientOFFICE/OUTPATIENT VISIT, [facility] 11/20/2019 Attender: MIKAYLA SPICER 11/20/2019 02:40:42 PM EDT ENRIQUETAMATIFFANY ([facility]) Unknown<td ID="encounterTypeDescriptionI D3">D Dental Office Visit - 30</td><td>Deanna Cruz DDS</td><td>[facility]</td><td>11/16/2019</td><td></td> Attender: Deanna Cruz DDS [facility] 11/16/2019 03:18:00 PM EST - 11/16/2019 03:45:00 PM EST MARIELENA ([facility]) Unknown<td ID="encounterTypeDescriptionI D4">D Dental Office Visit - 30</td><td>Deanna Cruz DDS</td><td>[facility]</td><td>10/18/2019</td><td></td> Attender: Deanna Cruz DDS [facility] 10/18/2019 02:47:00 PM EST - 10/18/2019 03:10:00 PM EST MARIELENA ([facility]) Unknown<td ID="encounterTypeDescriptionI D5">H Adult Prophy</td><td>Kayla Sharif [facility]</td><td>[facility]</td><td>10/06/2019</td><td></td> Attender: Kayla Sharif [facility] 10/06/2019 02:22:00 PM EST - 10/06/2019 02:58:00 PM EST MARIELENA ([facility]) Immunizations Vaccine Date Status Description Data Source(s) [...] tablet orally Every 12 hours 08/10/2020 CHARTMAKER ([facility]) 100 mg 07/13/2020 12:00:00 AM [...] BY MOUTH TWICE A DAY SOLD: 07/26/2020 [facility] 10 mEq (1,080 mg) 04/19/2020 [...] [facility] Vitamin D (Ergocalciferol) 1.25 MG (75035 UT) Oral Cap oksana Vitamin D (Ergocalciferol) 1.25 MG (89070 UT) Oral Capsule 01/09/2020 12:00:00 AM EDT [...] 12:00:00 AM EDT 1 completed 11/23/2019 JAMILAH ([facility]) 0.4 mg 11/22/2019 12:00:00 AM EDT capsule [...] SOLD: 12/21/2019 [facility] Vitamin D (Ergocalciferol) 90169 UNIT Oral Capsule Vit sarah D (Ergocalciferol) 28835 UNIT Oral Capsule 07/11/2019 12:00:00 AM EDT [...] type / Coverage type Policy ID Covered democrat ID Covered democrat's relationship to dickey Policy Dickey Plan Information HUMANA GOLD [id number] SP [id number] SP [id number] HUMANA GOLD [id number] SP [id number] WELLCARE [id number] SP [id number] Medicaid - [employer] [id number] Medica id [id number] WELLCARE [id number] Commercial Insurance [id number] ID IDENTIFICATION [id number] Other In surance [id number] HUMANA [id number] [facility] Health Plan [id number] Medicare [id number] Medicare [id number] Medicaid - [employer] Sukhjinder [id number] Medica id [id number] WELLCARE [id number] Commercial Insurance [id number] ID IDENTIFICATION [id number] Other In [facility] [id number] Medicaid of [place] Other 68 Self 68 [employer] Other 0 Self 0 SELF PAY MEDICAID [facility] [id number] SP [id number] WellCare [facility] Options [id number] SP [id number] [employer]. Other 0 Self 0 Medicaid of [place] Other 68 Self 68 MEDICAID [id number] SP [id number] WELLCARE [id number] SP [id number] [employer] Other 0 Self 0 Medicaid of [place] Other 68 Self 68 [employer]. Other 0 Self 0 [place] Other 68 Self 68 [place] of [place] Other 68 Self 68 [employer]. Other 0 Self 0 SELF PAY MEDICAID [facility] [id number] SP [id number] WellCare [employer] Options [id number] SP [id number] Medicaid of [place] Other 68 Self 68 Medicare Part [place] of [place] Other 0 Self 0 [place] Other 68 Self 68 Medicare Part [place] of [place] Other 0 Self 0 [place] Other 68 Self 68 Medicaid of [place] Other 68 Self 68 Medicare Part [place] of [place] Other 0 Self 0 Medicare Part [place] of [place] Other 0 Self 0 [place] of [place] Other 68 Self 68 Medicare Part [place] of [place] Other 0 Self 0 Medicaid of [place] Other 68 Self 68 MEDICARE [id number] SP [id number] A MEDICAID [id number] SP [id number] MEDICARE [id number] SP [id number] A MEDICAID [facility] [id number] SP [id number] MEDICARE [id number] SP [id number] A MEDICAID [facility] [id number] SP [id number] MEDICAID [id number] SP [id number] MEDICAID [facility] [id number] SP [id number] A Problems, Conditions, and Diagnoses Code Display Name Description Problem Type Effective Dates Data Source(s) R30.0 Dysuria Dysuria (R30.0) 03/02/2020 [id number] 03/02/2020 05:07:22 PM EDT CHARTMAKER ([facility]) 599.60 Urinary Obstruction Urinary Obstruction Problem 0 01/11/2020 12:00:00 AM EDT MARIELENA [facility]) N39.0 Urinary tract infection, site not specif ied Urinary tract infection, site not specified (N39.0) 03/02/2020 [id number] 11/20/2019 02:40:42 PM EDT - 03/02/2020 12:00:00 AM EDT CHARTMAKER ([facility]) 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 Ot her obstructive and reflux uropathy (N13.8) 03/02/2020 [id number] 11/20/2019 02:40:42 PM EDT - 03/02/2020 12:00:00 AM EDT CHARTMAKER ([facility]) Q54.1 Hypospadias, penile Hypospadias, penile (Q54.1) 11/20/19 20 [id number] 11/20/2019 02:40:42 PM EDT CHARTMAKER ([facility]) E55.9 Vitamin D deficiency, unspecified E55.9 - Vitamin D deficiency, unspecified Diagnosis 01/09/2020 02:37:00 PM EDT [facility] Surgeries/Procedures Procedure Description Date Indications Data Source(s) URNLS DIP STICK/TABLET RGNT NON-AUTO W/O MICRSCP 08/10 12:00:00 AM EST CHARTMAKER ([facility]) [facility] OFFICE REG SCHEDD EVN WKEND/HOLIDAY HRS 2019 12:00:00 AM EDT CHARTMAKER ([facility]) URNLS DIP STICK/TABLET RGNT NON-AUTO W/O MICRSCP 03/02 12:00:00 AM EDT CHARTMAKER ([facility]) XRAY ABDOMEN 1 VIEW (KUB) history of kidney stones 03/02/2020 03/02/2020 12:00:00 AM EDT [facility]MAKER ([facility]) URINE CULTURE 03/02/2020 03/02/2020 12:00:00 AM EDT CHARTMAKER ([facility]) Collected Date 03/02/2020 1733 03/02/2020 03/02/2020 12: 00:00 AM EDT CHARTMAKER ([facility]) Annual wellness visit, includes a person alized prevention plan of service (pps), subsequent visit AHR -Subsequent Annual Wellness Visit 01/09/2020 12:00 :00 AM EDT MARIELENA ([facility]) [facility] OFFICE REG SCHEDD EVN WKEND/HOLIDAY HRS 2019 12:00:00 AM EST CHARTMAKER ([facility]) Insertion tray with drainage bag but without catheter 11/20/2019 12:00:00 AM EST [facility]KER ([facility]) INSJ TEMP NDWELLG BLADDER CATHETER SIMPLE 11/20/2019 1 2:00:00 AM EST CHARTMAKER ([facility]) URINE CULTURE 11/20/2019 11/20/2019 12:00:00 AM EST CHARTMAKER ([facility]) Collected Date 11/20/2019 1547 11/20/2019 11/20/2019 12:00 :00 AM EST CHARTMAKER ([facility]) Max Partial Denture Resin Max Partial Denture Resin 11/16/2019 1 2:00:00 AM EST MARIELENA ([facility]) Oral Cancer Screening Oral Cancer Screening 10/18/2019 12:00:00 AM EST MARIELENA ([facility]) Periodic Oral Evaluation Periodic Oral Evaluation 10/18/2019 12:00: 00 AM EST MARIELENA ([facility]) Nutritional Counseling Nutritional Counseling 10/06/2019 12:00:00 A M EST MARIELENA ([facility]) Oral Hygiene/Pako Inst Oral Hygiene/Pako Inst 10/06/2019 12:00:00 AM EST MARIELENA ([facility]) Prophylaxis Adult Prophylaxis Adult 10/06/2019 12:00:00 AM EST MARIELENA ([facility]) Results ID Date Data Source [id number] 08/11/2020 12:45:28 PM EST [facility] - CORE SPECIMEN DESCRIPTION URINE, COLLE CTION METHOD NOT SPECIFIEDCULTURE RESULTS NO GROWTHREPORT STATUS FINAL 08/11/2020 Name Value Range Interpretation Code Description Data Alison rce(s) Supporting Document(s) ID Date Data Source [id number] 08/10/2020 12:00:00 AM EST CHARTMAKER ([facility]) Name Value Range Interpretation Code Description Data Alison rce(s) Supporting Document(s) Glucose [Mass/volume] in Serum or Plasma Negative Glucose: Negative 08/10/2020 CHARTMAKER ([facility]) ID Date Data Source [id number] 08/10/2020 12:00:00 AM EST CHARTMAKER ([facility]) Name Value Range Interpretation Code Description Data Alison rce(s) Supporting Document(s) Bilirubin.total [Mass/volume] in Serum or Plasma Negative Bilirubin: Negative 08/10/2020 CHARTMAKER ([facility]) ID Date Data Source [id number] 08/10/2020 12:00:00 AM EST CHARTMAKER ([facility]) Name Value Range Interpretation Code Description Data Alison rce(s) Supporting Document(s) Ketone Negative Ketone: Negative 020 CHARTMAKER ([facility]) ID Date Data Source [id number] 08/10/2020 12:00:00 AM EST [facility]MAKER ([facility]) Name Value Range Interpretation Code Description Data Alison rce(s) Supporting Document(s) Specific gravity of Urine 1.015 Specific G ravity: 1.015 08/10/2020 CHARTMAKER ([facility]) ID Date Data Source [id number] 08/10/2020 12:00:00 AM EST [facility]MAKER ([facility]) Name Value Range Interpretation Code Description Data Alison rce(s) Supporting Document(s) Hemoglobin [Presence] in Urine Negative Blood (Urine): Negative 08/10/2020 CHARTNEKER ([facility]) ID Date Data Source [id number] 08/10/2020 12:00:00 AM EST CHARTMAKER ([facility]) Name Value Range Interpretation Code Description Data Aliosn rce(s) Supporting Document(s) pH of Blood 7.0 pH: 7.0 08/10/2020 CHARTMAK ER ([facility]) ID Date Data Source [id number] 08/10/2020 12:00:00 AM EST [facility]KER ([facility] Name Value Range Interpretation Code Description Data Alison rce(s) Supporting Document(s) Protein [Mass/volume] in Serum or Plasma +1 Protein: +1 08/10/2020 [facility]) ID Date Data Source [id number] 08/10/2020 12:00:00 AM EST CHARTMAKER ([facility]) Name Value Range Interpretation Code Description Data Alison rce(s) Supporting Document(s) Urobilinogen [Mass/volume] in Urine 0.2 mg/dL Urobilinogen: 0.2 mg/dL 08/10/2020 CHARTMAKER ([facility]) ID Date Data Source [id number] 08/10/2020 12:00:00 AM EST [facility]ARTMAKER ([facility]) Name Value Range Interpretation Code Description Data Alison rce(s) Supporting Document(s) Nitrite [Presence] in Urine Negative Nitrite: Negative 08/10/2020 CHARTNEKER ([facility]) ID Date Data Source [id number] 08/10/2020 12:00:00 AM EST CHARTMAKER ([facility]) Name Value Range Interpretation Code Description Data Alison rce(s) Supporting Document(s) Leukocytes [#/volume] in Blood Negative Leuko cytes: Negative 08/10/2020 CHARTNEKER ([facility]) ID Date Data Source [id number] 03/02/2020 07:29:00 PM EDT CHARTMAKER ([facility]) EXAM:Abdomen 1V CLINICAL INDICATION: DYS URIA, HX [...] rce(s) Supporting Document(s) ID Date Data Source [id number] 03/04/2020 03:21:28 PM EDT [facility] - CORE SPECIMEN DESCRIPTION URINE, COLLE CTION METHOD NOT SPECIFIEDCULTURE RESULTS NO GROWTHREPORT STATUS FINAL 03/04/2020 Name Value Range Interpretation Code Description Data Alison rce(s) Supporting Document(s) ID Date Data Source [id number] 03/02/2020 12:00:00 AM EDT CHARTMAKER ([facility]) Name Value Range Interpretation Code Description Data Alison rce(s) Supporting Document(s) Glucose [Mass/volume] in Serum or Plasma Negative Glucose: Negative 03/02/2020 CHARTNEKER ([facility]) ID Date Data Source [id number] 03/02/2020 12:00:00 AM EDT CHARTMAKER ([facility]) Name Value Range Interpretation Code Description Data Alison rce(s) Supporting Document(s) Bilirubin.total [Mass/volume] in Serum or Plasma Negative Bilirubin: Negative 03/02/2020 CHARTNEKER ([facility]) ID Date Data Source [id number] 03/02/2020 12:00:00 AM EDT CHARTMAKER ([facility]) Name Value Range Interpretation Code Description Data Alison rce(s) Supporting Document(s) Ketone Negative Ketone: Negative 03/02/20 CHARTMAKER ([facility]) ID Date Data Source [id number] 03/02/2020 12:00:00 AM EDT CHARTMAKER ([facility]) Name Value Range Interpretation Code Description Data Alison rce(s) Supporting Document(s) Specific gravity of Urine 1.025 Specific G ravity: 1.025 03/02/2020 CHARTMAKER ([facility]) ID Date Data Source [id number] 03/02/2020 12:00:00 AM EDT CHARTMAKER ([facility]) Name Value Range Interpretation Code Description Data Alison rce(s) Supporting Document(s) Hemoglobin [Presence] in Urine Negative Blood (Urine): Negative 03/02/2020 CHARTMAKER ([facility]) ID Date Data Source [id number] 03/02/2020 12:00:00 AM EDT CHARTMAKER ([facility]) Name Value Range Interpretation Code Description Data Alison rce(s) Supporting Document(s) pH of Blood 6.0 pH: 6.0 03/02/2020 CHARTMAKE R ([facility]) ID Date Data Source [id number] 03/02/2020 12:00:00 AM EDT CHARTMAKER ([facility]) Name Value Range Interpretation Code Description Data Alison rce(s) Supporting Document(s) Protein [Mass/volume] in Serum or Plasma +1 Protein: +1 03/02/2020 CHARTMAKER ([facility]) ID Date Data Source [id number] 03/02/2020 12:00:00 AM EDT CHARTMAKER ([facility]) Name Value Range Interpretation Code Description Data Alison rce(s) Supporting Document(s) Urobilinogen [Mass/volume] in Urine 1 mg/dL Urobilinogen: 1 mg/dL 03/02/2020 CHARTMAKER ([facility]) ID Date Data Source [id number] 03/02/2020 12:00:00 AM EDT [facility]MAKER ([facility] Name Value Range Interpretation Code Description Data Alison rce(s) Supporting Document(s) Nitrite [Presence] in Urine Negative Nitrite: Negative 03/02/2020 CHARTMAKER ([facility]) ID Date Data Source [id number] 03/02/2020 12:00:00 AM EDT CHARTMAKER ([facility]) Name Value Range Interpretation Code Description Data Alison rce(s) Supporting Document(s) Leukocytes [#/volume] in Blood Negative Leuko cytes: Negative 03/02/2020 CHARTMAKER ([facility]) ID Date Data Source [id number] 01/09/2020 02:39:00 PM EDT MARIELENA ([facility]) Name Value Range Interpretation Code Description Data Alison rce(s) Supporting Document(s) Reported Physicians See Note Reported Physicians POWHATTAN ([facility]) Note: Reported Physicians:Ordering: Edwin MorrisonAttending: Edwin Cohn ID Date Data Source [id number] 01/09/2020 02:39:00 PM EDT MARIELENA ([facility]) Name Value Range Interpretation Code Description Data Alison rce(s) Supporting Document(s) Calcidiol [Mass/volume] in Serum or Plasma 46.6 ng/ml Normal Vitamin D,25-HYDROXY POWHATTAN ([facility]) Note: Vitamin D Status Rang e Deficiency <20 ng/ml Insufficiency 20-29.9 ng/ml Sufficiency 30-100 ng/ml Toxicity >100 ng/ml Patients should not be tested for 72 hours post fluorescein dye angiography. A false elevation of result may occur.Responsible Observer: Vitamin D Vitamin D,25-Hydroxy 300.5230 (A) ID Date Data Source [id number] 01/09/2020 02:39:00 PM EDT POWHATTAN ([facility]) Name Value Range Interpretation Code Description Data Alison rce(s) Supporting Document(s) Deprecated Cholesterol.in LDL/Cholestero l.in HDL [Mass ratio] in Serum or Plasma 4.5 Normal CHOL/HDL RATIO POWHATTAN ([facility] ) Note: Responsible Observer: CHOL/HDL RAT IO CHOL/HDL RATIO 300.4700 (A) Cholesterol crystals [Presence] in Stone by Infrared spectroscop y 186 MG/DL Normal CHOLESTEROL POWHATTAN ([facility]) Note: Responsible Observer: CHOL CHOLEST BLAINE 300.4350 (A) Cholesterol in HDL [Mass/volume] in Serum or Plasma ultracen trifugate 41 MG/DL Normal HDL CHOLESTEROL POWHATTAN ([facility]) Note: Responsible Observer: HDL HDL CHOL ESTEROL 300.4600 (A) Triglyceride [Mass/volume] in Serum or Plasma 168 MG/DL Above high normal TRIGLYCERIDES POWHATTAN ([facility]) Note: Responsible Observer: TRIG TRIGLYC ERIDES 300.4300 (A) Cholesterol in LDL [Mass/volume] in Serum or Plasma by Direct as say 111 MG/DL Normal LDL CHOLESTEROL POWHATTAN ([facility]) Note: Responsible Observer: LDL LDL CHOL ESTEROL 300.4400 (A) ID Date Data Source [id number] 01/09/2020 02:39:00 PM EDT P[place]AN ([facility]) Name Value Range Interpretation Code Description Data Alison rce(s) Supporting Document(s) Hemoglobin A1c/Hemoglobin.total in Blood 5.6 % Normal GLYCOSYLATED HGBA1C POWHATTAN ([facility]) Note: Responsible Observer: HGB A1C GLYC OSYLATED HGBA1C 300.0800 (A) ID Date Data Source [id number] 01/09/2020 02:39:00 PM EDT P[place]AN ([facility]) Name Value Range Interpretation Code Description Data Alison rce(s) Supporting Document(s) Albumin [Mass/volume] in Synovial fluid 4.9 G/DL Normal ALBUMIN POWHATTAN ([facility]) Note: Responsible Observer: ALB ALBUMIN 300.3900 (A) Albumin/Globulin [Mass Ratio] in Amniotic fluid 2.0 G/DL Normal ALB/GLOB RATIO POW[facility]AN ([facility]) Note: Responsible Observer: A/G RATIO AL B/GLOB RATIO 300.4100 (A) Alanine aminotransferase [Enzymatic activity/volume] in Seru m or Plasma 131 U/L Above high normal ALT POWHATTAN ([facility]) Note: Responsible Observer: ALT/SGPT ALT 300.3100 (A) Aspartate aminotransferase [Enzymatic activity/volume] in Serum or Plasma 60 U/L Above high normal AST POWH[place]AN ([facility]) Note: Responsible Observer: AST/SGOT AST 300.3050 (A) Alkaline phosphatase isoenzyme [Units/volume] in Serum or Plasma 94 U/L Normal ALKALINE PHOSPHATASE [facility]AN ([facility]) Note: Responsible Observer: ALK PHOS ALK VENUS PHOSPHATASE 300.3110 (A) Urea nitrogen/Creatinine [Mass Ratio] in Serum or Plasma 17 Normal BUN/CREAT RATIO [facility]AN ([facility]) Note: Responsible Observer: BUN/CREAT RA TONE BUN/CREAT RATIO 300.0450 (A) BLOOD UREA NITRO 17 MG/DL Normal [facility]) Note: Responsible Observer: BUN BLOOD UR EA NITROGEN 300.0350 (A) Bilirubin.total [Mass/volume] in Serum or Plasma 0.5 MG/DL Normal BILIRUBIN,TOTAL MARIELENA ([facility]) Note: Responsible Observer: TOTAL BILI T OTAL BILIRUBIN 300.2700 (A) Carbon dioxide, total [Moles/volume] in Serum or Plasma 31 MEQ/L Normal CARBON DIOXIDE MARIELENA ([facility]) Note: Responsible Observer: CO2 CARBON D IOXIDE 300.0250 (A) Chloride [Moles/volume] in Serum, Plasma or Blood 105 MEQ/L Normal CHLORIDE MARIELENA ([facility]) Note: Responsible Observer: CL CHLORIDE 300.0200 (A) CA 10.1 MG/DL Normal CA MARIELENA ([facility]) Note: Responsible Observer: CA CALCIUM 300.2200 (A) GFR 80.1 ML/MIN GFR MARIELENA ([facility]) Note: Stage G2 - Mildly [...] in Urine 1.0 MG/DL Nery l CREATININE [facility]OW[place]AN ([facility]) Note: Responsible Observer: CREAT CREATI NINE 300.0400 (A) Anion gap in Blood 12 Normal ANION GAP POWHATTAN ([facility]) Note: Responsible Observer: ANION GAP AN ION GAP 300.0300 (A) Globulin [Mass/volume] in Serum by calculation 2.5 G/DL Normal GLOBULIN MARIELENA ([facility]) Note: Responsible Observer: GLOB GLOBULI N 300.4050 (A) Potassium [Mass/volume] in Blood 4.3 MEQ/L Normal POT ASSIUM [facility]AN ([facility]) Note: Responsible Observer: K POTASSIUM 300.0150 (A) Glucose [Presence] in Urine 108 MG/DL Above high normal G LUCOSE [facility] ([facility]) Note: Responsible Observer: GLU GLUCOSE 300.0500 (A) Sodium [Moles/volume] in Serum, Plasma or Blood 144 MEQ/L Normal SODIUM [facility]AN ([facility]) Note: Responsible Observer: NA SODIUM 3 00.0100 (A) Protein [Mass/volume] in Synovial fluid 7.4 G/DL Normal TOTAL PROTEIN [facility]OW[place]AN ([facility]) Note: Responsible Observer: TP TOTAL PRO TEIN 300.3750 (A) ID Date Data Source [id number] 01/09/2020 05:43:00 PM EDT [facility] Has Patient Fasted For The Past 12 [...] rce(s) Supporting Document(s) SODIUM 144 MEQ/L 135-145 [facility] POTASSIUM 4.3 MEQ/L 3.5-5.3 [facility] [facility] [place] CHLORIDE 105 MEQ/L 94-110 [facility] CARBON DIOXIDE 31 MEQ/L 22-33 [facility] ANION GAP 12 5-16 [facility] BLOOD UREA NITRO 17 MG/DL 7-25 [facility] CREATININE 1.0 MG/DL 0.6-1.4 [facility] GFR 80.1 ML/MIN [facility] Stage G2 - Mildly decreased kidney func tion The GFR is an estimate of the Glomerular Filtration Rate. It is an aid to assess a patient's renal function. It is not a conclusive diagnosis of kidney disease. GFR normal is >=90 The MDRD GFR calculation is considered valid between the ages of 18 and 75 years only. BUN/CREAT RATIO 17 8-36 [facility] GLUCOSE 108 MG/DL 70-100 [facility] CA 10.1 MG/DL 8.7-10.5 [facility] BILIRUBIN,TOTAL 0.5 MG/DL 0.1-1.3 [facility] AST 60 U/L 5-40 [facility] ALT 131 U/L 5-48 [facility] ALKALINE PHOSPHATASE 94 U/L 40-140 [facility] TOTAL PROTEIN 7.4 G/DL 5.9-8.3 [facility] ALBUMIN 4.9 G/DL 3.0-5.1 [facility] GLOBULIN 2.5 G/DL 1.5-3.5 [facility] ALB/GLOB RATIO 2.0 G/DL 1.0-3.0 [facility] ID Date Data Source [id number] 01/09/2020 05:43:00 PM [facility] Has Patient Fasted For The Past 12 [...] Document(s) GLYCOSYLATED HGBA1C 5.6 % 4.1-6.5 [facility] ID Date Data Source [id number] 01/09/2020 05:43:00 PM T [facility] Has Patient Fasted For The Past 12 [...] Supporting Document(s) TRIGLYCERIDES 168 MG/DL 45-150 [facility] CHOLESTEROL 186 MG/DL 125-200 [facility] LDL CHOLESTEROL 111 MG/DL 50-130 [facility] HDL CHOLESTEROL 41 MG/DL 39-96 [facility] CHOL/HDL RATIO 4.5 0-4.9 [facility] ID Date Data Source [id number] 01/09/2020 05:43:00 PM [facility] Has Patient Fasted For The Past 12 [...] Document(s) Vitamin D,25-HYDROXY 46.6 ng/ml 30-100 [facility] D Status Range De ficiency <20 ng/ml Insufficiency 20-29.9 ng/ml Sufficiency 30-100 ng/ml Toxicity >100 ng/ml Patients should not be tested for 72 hours post fluorescein dye angiography. A false elevation of result may occur. ID Date Data Source [id number] 11/22/2019 12:32:03 PM EDT [facility] - CORE SPECIMEN DESCRIPTION URINE, COLLE CTION [...] Never smoker completed Never s edvin CHARTMAKER ([facility] [place]) Vital Signs ID Date Data Source UNK Name Value Range Interpretation Code Description Data Source(s) Inhaled oxygen concentration 21 % 21 % CHARTMAKER ([facility] [place]) Oxygen saturation in Arterial blood by Pulse oximetry 96 % 96 % CHARTMAKER ([facility] [place]) Body weight 218.25 [lb_av] 218.25 [lb_av] CHART MAKER ([facility] [place]) Diastolic blood pressure 80 mm[Hg] 80 mm[Hg] CHARTMAKER ([facility] [place]) Systolic blood pressure 126 mm[Hg] 126 mm[Hg] C HARTYADIRAKER ([facility] [place]) Heart rate 95 /min 95 /min CHARTMAKER ([facility] [place]) Body temperature 97.3 [degF] 97.3 [degF] WILFRED GOLDSTEIN ([facility] [place]) Inhaled oxygen concentration 21 % 21 % CHARTMAKER ([facility]) Oxygen saturation in Arterial blood by Pulse oximetry 97 % 97 % CHARTMAKER ([facility]) Body weight 206 [lb_av] 206 [lb_av] CHARTMAKER ([facility]) Diastolic blood pressure 80 mm[Hg] 80 mm[Hg] CHARTMAKER ([facility]) Systolic blood pressure 120 mm[Hg] 120 mm[Hg] C HARTMAKER ([facility]) Heart rate 85 /min 85 /min CHARTMAKER ([facility]) Body temperature 97.9 [degF] 97.9 [degF] CHARTChicho ANGELITA ([facility]) Oxygen saturation in Arterial blood by Pulse oximetry 97 % 97 % MARIELENA ([facility]) PhenX - pain, abdominal - type and intensity protocol 0 0 [place] ([facility]) Body surface area Derived from formula 2.03 m2 2.03 m2 [place] ([facility]) Body mass index (BMI) [Ratio] 33.2 kg/m2 33.2 k g/m2 MARIELENA ([facility]) Body weight 206 [lb_av] 206 [lb_av] [facility] Body height 66 [in_i] 66 [in_i] MARIELENA ([facility]) Body temperature 96.7 [degF] 96.7 [degF] [facility] A[facility] ([facility]) Respiratory rate 18 /min 18 /min MARIELENA ([facility]) Heart rate rhythm 1 1 [place] ([facility]) Heart rate 88 /min 88 /min MARIELENA ([facility]) Diastolic blood pressure 80 mm[Hg] 80 mm[Hg] [place] ([facility]) Systolic blood pressure 118 mm[Hg] 118 mm[Hg] [facility] Patient Treatment Plan of Care Planned Activity Planned Date Details Description Data Source (s) Vitamin D (Ergocalciferol) 1.25 MG (35965 UT) Oral Cap oksana 01/09/2020 12:00:00 AM EDT [facility] Om[facility] 20 MG Delayed Release Oral Capsule 01/09/2020 12:00:00 A M EDT [place] ([facility]) Vitamin D (Ergocalciferol) 74594 UNIT Oral Capsule 07/11/2019 12 :00:00 AM [facility] ([facility]) Omeprazole 20 MG Delayed Release Oral Capsule 01/27/2019 12:00:00 A M [facility])
[2020-10-02 18:54] LABS: BASO % 0.4 % (0.0-1.0); EOS # 0.2 10^3/uL (0.0-0.5); EOS % 2.3 % (0.0-3.0); HEMATOCRIT 47.3 % (42.0-52.0); HEMOGLOBIN 15.7 g/dl (13.5-17.5); LYMPH # 2.1 10^3/uL (1.5-5.0); LYMPH % 20.3 % (24.0-44.0); MEAN CORPUSCULAR HEMOGLOBIN 29.3 pg (27.0-33.0); MEAN CORPUSCULAR HGB CONC 33.2 g/dl (32.0-36.5); MEAN CORPUSCULAR VOLUME 88.4 fl (80.0-96.0); MONO # 0.9 10^3/uL (0.0-0.8); MONO % 8.6 % (0.0-5.0); NEUTROPHILS # 6.9 10^3/uL (1.5-8.5); NEUTROPHILS % 68.1 % (36.0-66.0); PLATELET COUNT, AUTOMATED 208 10^3/uL (150-450); RED BLOOD COUNT 5.35 10^6/uL (4.30-6.10); WHITE BLOOD COUNT 10.2 10^3/uL (4.0-10.0)
[2020-10-02 19:07] LABS: APPEARANCE, URINE HAZY (CLEAR); BACTERIA, URINE AUTO 1+ (NEGATIVE); BILIRUBIN, URINE AUTO NEGATIVE (NEGATIVE); BLOOD, URINE BLOOD NEGATIVE (NEGATIVE); COLOR, URINE YELLOW (YELLOW); GLUCOSE, URINE (UA) AUTO NEGATIVE (NEGATIVE); KETONE, URINE AUTO TRACE mg/dL (NEGATIVE); LEUKOCYTE ESTERASE, URINE AUTO 1+ (NEGATIVE); MUCUS, URINE SMALL (NEGATIVE); NITRITE, URINE AUTO NEGATIVE (NEGATIVE); PROTEIN, URINE AUTO 1+ mg/dL (NEGATIVE); RBC, URINE AUTO 18 /HPF (0-3); RENAL EPITHELIAL CELLS 2 /HPF; SPECIFIC GRAVITY URINE AUTO 1.019 (1.002-1.035); SQUAMOUS EPITHELIAL CELL UR AU 5 /HPF (0-6); WBC, URINE AUTO 44 /HPF (0-3)
[2020-10-02] MEDS ORDERED: CIPR-249 PO (19:29)
[2020-10-02] MEDS ORDERED: CIPROFLOXACIN 500MG TABLET PO ONE (19:30)
[2020-10-02 19:54] VITALS: BP 138/78
== END 2020-10-02 19:56 | disposition home or self-care (01) ==
LOC: M ED 16:52
DX: R33.9 Retention of urine, unspecified (principal); Q54.9 Hypospadias, unspecified; I10 Essential (primary) hypertension; F79 Unspecified intellectual disabilities; K21.9 Gastro-esophageal reflux disease without esophagitis

== ENCOUNTER → 2020-10-02 | Outpatient (CLI) | payer OTHER, MEDICAID ==
[~2020-10-02] MED LIST: CIPR-249 PO
--- NOTE | 2020-10-02 16:30 | REP ---
INDICATION: URINARY RETENTION. COMPARISON: Comparison CT study November 28, 2019.. TECHNIQUE: Transabdominal sonography of the urinary bladder is carried out. I note that according to the technologist's notes, the patient was unable to void after initial imaging and did not bring his catheter. Accordingly, postvoid imaging could not be obtained. FINDINGS: Visualized bladder honeycutt are smooth. Prevoid bladder volume calculation is 359.5 mL. Emptying ureteral jets were not visualized. No bladder mass lesion is seen. No extravesical lesion is observed. IMPRESSION: Bladder is somewhat distended, 359.5 mL estimated volume. Patient unable to void (did not bring his catheter). Postvoid imaging could not be obtained. No bladder mass or extravesical lesion seen. <Electronically signed by Aidan Prieto > 10/02/20 0913
== END ==
LOC: M RAD 15:48
PROVIDERS: ATTEND Nurse Practitioner Family
DX: R33.9 Retention of urine, unspecified (principal)

== ENCOUNTER 2022-03-27 14:49 | Emergency (ER) | payer MEDICAID, OTHER ==
[~2022-03-27] VITALS: Ht 170.2 cm; Wt 98.5 kg
[2022-03-27] MEDS ORDERED: LIDOCAINE 2% 5ML JELLY UROJET TOP ONE (17:30)
[2022-03-27] MEDS ORDERED: CIPR500T39 PO (19:35)
[2022-03-27 19:56] VITALS: BP 132/77
== END 2022-03-27 20:01 | disposition home or self-care (01) ==
LOC: M ED 14:49
DX: N35.919 Unspecified urethral stricture, male, unspecified site (principal); N20.0 Calculus of kidney; K21.9 Gastro-esophageal reflux disease without esophagitis

== ENCOUNTER → 2022-04-18 | Outpatient (CLI) | payer MEDICARE, MEDICAID ==
[~2022-04-18] MED LIST changes: +CIPR500T39 PO
== END ==
LOC: M PLAIMG 10:05
PROVIDERS: ATTEND Internal Medicine Nephrology
DX: N20.0 Calculus of kidney (principal); R33.9 Retention of urine, unspecified

== ENCOUNTER → 2022-05-04 | Outpatient (CLI) | payer MEDICARE, MEDICAID ==
[~2022-05-04] MED LIST changes: +ALLO100T PO; +METO1TAB7 PO; +POTA10808 PO; +TAMS1CAP17 PO
== END ==
LOC: M LABSMTC 10:22
PROVIDERS: ATTEND Anesthesiology
DX: Z01.818 Encounter for other preprocedural examination (principal); Z11.52 Encounter for screening for COVID-19

== ENCOUNTER 2022-05-07 08:12 | Day surgery (SDC) | payer MEDICARE, MEDICAID ==
[~2022-05-07] VITALS: Ht 170.2 cm; Wt 87.6 kg
[2022-05-07] MEDS ORDERED: LR 1,000 ML IV SCH ×2 (08:35→13:10)
[2022-05-07] MEDS ORDERED: ceFAZolin SOD 2 GM in IV 1 EA IV ONE (09:05)
[2022-05-07] MEDS ORDERED: propofoL 200 MG/20 ML VIAL As Ordered ONE ×2 (10:24→12:43)
[2022-05-07] MEDS ORDERED: LIDOCAINE 2% 100MG/5ML SDV (FOR ANES.) As Ordered ONE (10:24)
[2022-05-07] MEDS ORDERED: dexameTHASONE 4 MG/ML 1ML VIAL (J1100 PER 1MG) As Ordered ONE (10:25)
[2022-05-07] MEDS ORDERED: ROCURONIUM BROMIDE 50 MG/5 ML VIAL As Ordered ONE (10:25)
[2022-05-07] MEDS ORDERED: ONDANSETRON 4MG 2ML VIAL As Ordered ONE ×2 (10:25→12:35)
[2022-05-07] MEDS ORDERED: KETOROLAC 60MG 2ML VIAL As Ordered ONE (10:25)
[2022-05-07] MEDS ORDERED: MIDAZOLAM INJ 2MG/2ML VIAL (J2250 PER 1MG) As Ordered ONE (10:27)
[2022-05-07] MEDS ORDERED: fentaNYL 100 MCG/2 ML INJECTION As Ordered ONE (10:27)
[2022-05-07] MEDS ORDERED: CEPH500C PO (12:21)
[2022-05-07] MEDS ORDERED: BACITRACIN OINTMENT 30GM TUBE As Ordered ONE (13:03)
[2022-05-07] MEDS ORDERED: ACETAMINOPHEN 1000MG 100ML IV BTL (OFIRMEV) (J0131 PER 10MG) As Ordered ONE (13:08)
[2022-05-07] MEDS ORDERED: ONDANSETRON 4MG 2ML VIAL IV PRN (13:10)
[2022-05-07] MEDS ORDERED: MEPERIDINE INJ 25 MG/ML VIAL (J2175) IV PRN (13:10)
[2022-05-07] MEDS ORDERED: METOCLOPRAMIDE INJ 10MG/2ML VIAL (J2765 PER 1) IV PRN (13:10)
[2022-05-07] MEDS ORDERED: HYDROMORPHONE HCL 0.5 MG/ 0.5 ML SYRINGE (J1170 PER 1) IV PRN (13:10)
[2022-05-07] MEDS ORDERED: fentaNYL 100 MCG/2 ML INJECTION IV PRN (13:10)
[2022-05-07] MEDS ORDERED: oxyCODONE 5MG TAB PO PRN (13:10)
[2022-05-07 14:00] VITALS: BP 124/80
[2022-05-08] MEDS ORDERED: ceFAZolin SOD 2 GM in IV 1 EA IV ONE (06:00)
== END 2022-05-07 14:38 | disposition home or self-care (01) ==
LOC: M SDC 08:12
PROVIDERS: ATTEND Urology
DX: N35.911 Unspecified urethral stricture, male, meatal (principal); N37 Urethral disorders in diseases classified elsewhere; K21.9 Gastro-esophageal reflux disease without esophagitis; F79 Unspecified intellectual disabilities; Z87.442 Personal history of urinary calculi; Z79.899 Other long term (current) drug therapy
CPT/HCPCS: 53020; J0131; J0690; J1100; J1885; J2250; J2405; J3010

== ENCOUNTER 2022-07-21 18:05 | Emergency (ER) | payer MEDICARE, MEDICAID ==
[~2022-07-21] VITALS: Ht 170.2 cm; Wt 86.7 kg
[~2022-07-21 18:05] MED LIST changes: +CEPH500C PO
[2022-07-21 19:54] LABS: HEMOGLOBIN 16.6 g/dl (13.5-17.5); MEAN CORPUSCULAR HEMOGLOBIN 29.9 pg (27.0-33.0); MEAN CORPUSCULAR HGB CONC 33.2 g/dl (32.0-36.5); MEAN CORPUSCULAR VOLUME 89.9 fl (80.0-96.0); PLATELET COUNT, AUTOMATED 211 10^3/uL (150-450); RED BLOOD COUNT 5.56 10^6/uL (4.30-6.10); WHITE BLOOD COUNT 15.7 10^3/uL (4.0-10.0)
[2022-07-21 20:40] LABS: ALBUMIN 4.4 GM/DL (3.2-5.2); BILIRUBIN,DIRECT 0.4 MG/DL (0.0-0.2); BILIRUBIN,TOTAL 1.2 MG/DL (0.2-1.0); CALCIUM LEVEL 10.1 MG/DL (8.5-10.1); CREATININE FOR GFR 1.56 MG/DL (0.70-1.30); GLOMERULAR FILTRATION RATE 50.4 (>56); POTASSIUM SERUM 4.4 MEQ/L (3.5-5.1); TOTAL PROTEIN 8.5 GM/DL (6.4-8.2)
[2022-07-21] MEDS ORDERED: ACETAMINOPHEN 500 MG TAB PO ONE (23:45)
[2022-07-21] MEDS ORDERED: NS 1,000 ML IV ONE (23:45)
[2022-07-22 00:54] LABS: RSV AMPLIFICATION NEGATIVE (NEGATIVE)
[2022-07-22] MEDS ORDERED: TAMSULOSIN 0.4 MG CAP PO ONE (01:10)
[2022-07-22] MEDS ORDERED: FLOM0.4C39 PO (01:11)
[2022-07-22] MEDS ORDERED: HYDR-4571 PO (01:11)
[2022-07-22] MEDS ORDERED: HYDR-3713 PO (01:12)
[2022-07-22 01:16] VITALS: BP 154/88
== END 2022-07-22 01:30 | disposition home or self-care (01) ==
LOC: M ED 18:05
DX: N13.2 Hydronephrosis with renal and ureteral calculous obstruction (principal); R11.2 Nausea with vomiting, unspecified; I10 Essential (primary) hypertension; E78.5 Hyperlipidemia, unspecified; M10.9 Gout, unspecified; K21.9 Gastro-esophageal reflux disease without esophagitis; Z90.49 Acquired absence of other specified parts of digestive tract; F79 Unspecified intellectual disabilities; Z79.899 Other long term (current) drug therapy

== ENCOUNTER → 2022-08-13 | Outpatient (CLI) | payer MEDICARE, MEDICAID ==
[~2022-08-13] MED LIST changes: +FLOM0.4C39 PO; +HYDR-3713 PO; +HYDR-4571 PO; +OMEP-173 PO; +OXYB-54 PO
== END ==
LOC: M EKG 10:04
PROVIDERS: ATTEND Physician Assistant
DX: Z01.812 Encounter for preprocedural laboratory examination (principal); N20.0 Calculus of kidney; Z20.822 Contact with and (suspected) exposure to COVID-19

== ENCOUNTER → 2022-08-13 | Outpatient (CLI) | payer MEDICARE, MEDICAID | LOC: M LABSMTC 09:49 | PROVIDERS: ATTEND Anesthesiology | DX: Z01.812 Encounter for preprocedural laboratory examination (principal); Z11.52 Encounter for screening for COVID-19 ==

== ENCOUNTER → 2022-09-21 | Outpatient (CLI) | payer MEDICARE, MEDICAID ==
[~2022-09-21] MED LIST changes: -OXYB-54 PO
== END ==
LOC: M LABSMTC 10:21
PROVIDERS: ATTEND Anesthesiology
DX: Z01.812 Encounter for preprocedural laboratory examination (principal); Z20.822 Contact with and (suspected) exposure to COVID-19

== ENCOUNTER 2022-09-24 08:51 | Day surgery (SDC) | payer MEDICARE, MEDICAID ==
[~2022-09-24] VITALS: Ht 170.2 cm; Wt 82.3 kg
[~2022-09-24 08:51] MED LIST changes: +ceFAZolin SOD 2 GM in IV 1 EA IV ONE
[2022-09-24] MEDS ORDERED: LR 1,000 ML IV SCH ×2 (09:40→12:40)
[2022-09-24] MEDS ORDERED: MIDAZOLAM INJ 2MG/2ML VIAL As Ordered ONE (10:13)
[2022-09-24] MEDS ORDERED: ONDANSETRON 4MG 2ML VIAL As Ordered ONE (10:14)
[2022-09-24] MEDS ORDERED: fentaNYL 100 MCG/2 ML INJECTION As Ordered ONE (10:14)
[2022-09-24] MEDS ORDERED: KETOROLAC 60MG 2ML VIAL As Ordered ONE (10:14)
[2022-09-24] MEDS ORDERED: propofoL 200 MG/20 ML VIAL As Ordered ONE (10:15)
[2022-09-24] MEDS ORDERED: LIDOCAINE 2% 100MG/5ML SDV (FOR ANES.) As Ordered ONE (10:15)
[2022-09-24] MEDS ORDERED: ACETAMINOPHEN 1000MG 100ML IV BAG As Ordered ONE (10:23)
[2022-09-24] MEDS ORDERED: ISOVUE-300 61% 50ML VIAL As Ordered ONE (10:46)
[2022-09-24] MEDS ORDERED: HYDROMORPHONE HCL 0.5 MG/ 0.5 ML SYRINGE IV PRN (12:40)
[2022-09-24] MEDS ORDERED: ONDANSETRON 4MG 2ML VIAL IV PRN (12:40)
[2022-09-24] MEDS ORDERED: oxyCODONE 5MG TAB PO PRN (12:40)
[2022-09-24] MEDS ORDERED: PERCOCET 5MG/325MG TAB PO PRN (12:55)
[2022-09-24] MEDS ORDERED: oxyBUTYnin 5 MG TAB PO PRN (12:55)
[2022-09-24] MEDS ORDERED: OXYB-54 PO (12:57)
[2022-09-24] MEDS: fentaNYL 100 MCG/2 ML INJECTION IV PRN ×2 (13:18→13:24)
[2022-09-24 14:00] VITALS: BP 158/99
[2022-09-29 12:07] LABS: Ca Ox Monohydrate 100 % (.); Size 5x4 mm (.)
== END 2022-09-24 14:48 | disposition home or self-care (01) ==
LOC: M SDC 08:51
PROVIDERS: ATTEND Urology
DX: N20.2 Calculus of kidney with calculus of ureter (principal); N13.5 Crossing vessel and stricture of ureter without hydronephrosis; N35.919 Unspecified urethral stricture, male, unspecified site
CPT/HCPCS: 52356; 74420; 82365; C1769; C1894; C2617; J0690; J1100; J2250; J2405; J3010; Q9967

== ENCOUNTER → 2022-10-20 | Outpatient (REF) | payer MEDICARE, MEDICAID ==
[~2022-10-20] MED LIST changes: +OXYB-54 PO; -ceFAZolin SOD 2 GM in IV 1 EA IV ONE
[2022-10-20 17:16] LABS: FREE T4 1.25 NG/DL (0.89-1.76)
[2022-10-20 17:17] LABS: THYROID STIMULATING HORMONE 0.84 uIU/ML (0.55-4.78)
== END ==
LOC: M LAB REF 16:46
PROVIDERS: ATTEND Internal Medicine Nephrology
DX: E03.9 Hypothyroidism, unspecified (principal)